=== PATIENT | female | born 2000 ===

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

== ENCOUNTER 2021-06-11 13:40 | Outpatient (REF) | payer OTHER, SELFPAY ==
[2021-06-11 13:50] LABS: MANUAL DIFF FLAG NO
[2021-06-11 14:42] LABS: Basophils Percent Auto 0.5 % (0-2); Eosinophils Absolute Auto 0.1 X10*3/uL (0.0-0.4); Eosinophils Percent Auto 1.2 % (0-4); Hematocrit 33.8 % (37.0-47.0); Hemoglobin 11.4 g/dl (12.0-16.0); Imm Gran Abs Auto 0.01 X10*3/uL (0.00-0.03); Imm Gran Pct Auto 0.2 % (0.0-0.4); Lymphocytes Absolute Auto 1.8 X10*3/uL (1.2-4.9); Lymphocytes Percent Auto 32.2 % (20-40); Mean Corpuscular HGB Conc 33.7 g/dl (31.0-35.0); Mean Corpuscular Hemoglobin 29.3 pg (27.0-33.0); Mean Corpuscular Volume 86.9 fL (80.0-98.0); Mean Platelet Volume 10.8 fL (9.4-12.3); Monocytes Absolute Auto 0.5 X10*3/uL (0.1-1.2); Monocytes Percent Auto 8.2 % (2-11); Neutrophils Absolute Auto 3.3 x10*3/uL (2.0-8.3); Neutrophils Percent Auto 57.7 % (45-73); Platelet Count 275 X10*3/uL (160-400); Red Blood Count 3.89 X10*6/uL (4.20-5.50); Red Cell Distribution Width 12.2 % (11.0-16.0); White Blood Count 5.7 X10*3/uL (4.8-10.8)
[2021-06-11 15:07] LABS: Anion Gap 10 (12-20); Blood Urea Nitrogen 5 mg/dL (9-16); Calcium 9.7 mg/dL (8.4-10.2); Carbon Dioxide 28 mmol/L (22-29); Chloride 105 mmol/L (96-108); Estimated Glomerular Filt Rate > 60; Glucose Random 86 mg/dL (60-115); Iron 33 mcg/dL (30-160); Percent Iron Saturation 10 % (15-50); Potassium 4.4 mmol/L (3.3-5.1); Sodium 139 mmol/L (135-145); Total Iron Binding Capacity 326 mcg/dL (228-428); Unsaturated Iron Binding 293 ug/dL
[2021-06-11 15:27] LABS: Erythrocyte Sedimentation Rate 4 MM/HR (0-20)
== END 2021-06-11 13:41 | disposition home or self-care (01) ==
LOC: HO.LAB 13:40
PROVIDERS: PCP Physician Assistant; Visit Provider Psychiatry & Neurology Neurology
DX: G43.909 Migraine, unspecified, not intractable, without status migrainosus (principal)
CPT/HCPCS: 36415; 80048; 83540; 85025; 85652

== ENCOUNTER 2021-07-24 14:27 | Outpatient (REF) | payer OTHER, SELFPAY ==
--- NOTE | ~2021-07-24 | CT_ITS ---
EXAMINATION: CT HEAD WITH/WITHOUT CONTRAST CLINICAL INFORMATION: Migraine COMPARISON: None TECHNIQUE: Contiguous axial imaging was performed from the skull base to vertex before and after the administration of 85 mL of Omnipaque [address] examination was performed using dose optimization techniques as appropriate, variously including the following: *Automated exposure control *Adjustment of mA and/or kV according to patient size (this includes techniques or standardized protocols for targeted exams where dose is matched to indication/reason for exam; i.e. extremities or head) *Use of iterative reconstruction technique DLP: 1346 mGy-cm FINDINGS: There is no evidence of acute intracranial hemorrhage or territorial infarction. No abnormal mass effect or midline shift is seen. Montano to white matter differentiation is well preserved. No extra-axial fluid collections are identified. There is no abnormal enhancement. The ventricles are normal in size. There is no abnormal attenuation within the brain parenchyma. The osseous structures and soft tissues are normal. The mastoid air cells and visualized portions of the paranasal sinuses are well aerated. CT/CT head/brain wo/w con IMPRESSION: Unremarkable exam.
[2021-07-24] MEDS: iohexoL 350 MG/ML 100 ML INFUS..BTL IV (15:06)
== END 2021-07-24 14:28 | disposition home or self-care (01) ==
LOC: HO.CT 14:27
PROVIDERS: Visit Provider Psychiatry & Neurology Neurology
DX: G43.909 Migraine, unspecified, not intractable, without status migrainosus (principal)
CPT/HCPCS: 70470; Q9967

== ENCOUNTER 2022-02-05 17:28 | Outpatient (REF) | payer OTHER, SELFPAY ==
[2022-02-05 17:49] LABS: Appearance Urine CLEAR; Color Urine YELLOW; Glucose Urine UA NEG (NEG); Leukocyte Esterase Urine NEG (NEG); Nitrite Urine NEG (NEG); Urine Blood NEG (NEG); Urine Ketones NEG (NEG); Urine Protein NEG (NEG-TRACE)
== END 2022-02-05 17:29 | disposition home or self-care (01) ==
LOC: HO.LNP 17:28
PROVIDERS: Visit Provider Pediatrics
DX: R30.0 Dysuria (principal)
CPT/HCPCS: 81003

== ENCOUNTER 2022-12-20 07:58 | Outpatient (REF) | payer OTHER, SELFPAY ==
--- NOTE | ~2022-12-20 | CT_ITS ---
EXAMINATION: CT ANGIOGRAM BRAIN, HEAD CLINICAL INFORMATION: Cerebral aneurysm COMPARISON: CT head without contrast 07/24/2021 TECHNIQUE: Test bolus sequences followed by intravenous administration 75 mL of Omnipaque 350 intravenous contrast. Helical imaging was performed in the axial plane from the skull base to the vertex. Delayed postcontrast imaging of the head was also performed. The data was processed at the extractions technologist workstation for generation of MIP sequences. Three-dimensional volume rendered reformatted images were also generated at an offline 3-D workstation. The degree of stenosis determined by NASCET criteria. This CT examination was performed using dose optimization techniques as appropriate, variously including the following: *Automated exposure control *Adjustment of mA and/or kV according to patient size (this includes techniques or standardized protocols for targeted exams where dose is matched to indication/reason for exam; i.e. extremities or head) *Use of iterative reconstruction technique DLP: 1897 mGy-cm FINDINGS: CT Head: There is no evidence of acute intracranial hemorrhage or edematous territorial infarction. There is no abnormal attenuation within the brain parenchyma. Montano-white matter differentiation is preserved. The ventricles are normal in size and configuration. No evidence for obstructive hydrocephalus. No abnormal mass effect or midline shift. No extra-axial fluid collections. No pathologic intra-axial enhancement or regional oligemia. No acute soft tissue or osseous abnormalities. The mastoid air cells and paranasal sinuses are clear. Brain CTA: Intracranial Internal Carotid Arteries: No focal stenosis or occlusion. Right Anterior Cerebral Artery: The A1 segment is diminutive. Normal opacification of the distal ALONZO segments. Left Anterior Cerebral Artery: Normal A1 segment. Normal opacification of the distal ALONZO segments. Anterior Communicating Artery: Normal. Right Middle Cerebral Artery: Normal M1 segment of the MCA without focal stenosis or occlusion. Normal arborization of the distal segments. Left Middle Cerebral Artery: Normal M1 segment of the MCA without focal stenosis or occlusion. Normal arborization of the distal segments. Right Vertebral Artery: Nondominant right vertebral artery which terminates predominantly as PICA with small component contributing to the basilar artery. Left Vertebral Artery: Dominant. Normal V4 segment. Basilar Artery: Normal without focal stenosis or occlusion. Normal appearance of the proximal superior cerebellar arteries. Right Posterior Cerebral Artery: Normal P1 segment. Normal opacification of the distal SALES PROGRAM MANAGER segments. Left Posterior Cerebral Artery: Normal P1 segment. Normal opacification of the distal SALES PROGRAM MANAGER segments. Normal opacification of the superior sagittal, straight, transverse, and sigmoid sinuses. CT/CT angio head IMPRESSION: No evidence of intracranial aneurysm.
[2022-12-20] MEDS: iohexoL 350 MG/ML 100 ML INFUS..BTL 75 ML IV (08:46)
== END 2022-12-20 07:59 | disposition home or self-care (01) ==
LOC: HO.CT 07:58
PROVIDERS: Visit Provider Psychiatry & Neurology Neurology
DX: I67.1 Cerebral aneurysm, nonruptured (principal)
CPT/HCPCS: 70496; Q9967

== ENCOUNTER 2023-02-20 16:12 | Emergency (ER) | payer OTHER, SELFPAY ==
[2023-02-20 16:54] VITALS: BP 114/56; PULSE 81; RESP 16; TEMP 36.9; O2SAT 98; BMI 29.3
--- NOTE | 2023-02-20 16:56 | ED_ITS ---
HPI - General Adult General Chief complaint: Skin/Abscess/Foreign Body Stated complaint: vagina pain Source: patient Mode of arrival: ambulatory Limitations: no limitations History of Present Illness HPI narrative: 23-year-old female presenting to the ER with complaints of vaginal abscess that occurred or started on Friday after she had a Cambodian wax. She reports that she went to obtain a Cambodian wax and after the wax the wax lady told her that she had abscess to her right labia and that she should be evaluated. She did try to follow-up with OBGYN although she did not obtain an appointment up until March therefore she came here for further evaluation treatment. She reports she has not been sexually active in some time and she does not believe she has an STD. She denies any fevers, chills, abdominal pain, abnormal vaginal discharge, history of MRSA, prior abscesses in the past, dysuria or hematuria or any other symptoms complaints or concerns at this time. MD complaint: vaginal abscess Onset (ago): week(s) (1) Related Data Previous Rx's Medication Instructions Recorded doxycycline monohydrate 100 mg 100 mg PO BID 10 days #20 tabs 02/20/23 tablet Allergies Allergy/AdvReac Type Severity Reaction Status Date / Time dust Allergy Unknown Itchy Eyes Uncoded 02/20/23 16:54 pollen Allergy Unknown Watery Eye Uncoded 02/20/23 16:54 Review of Systems Review of Systems: Constitutional : Denies history of same, Denies any other sites involved, Denies IV drug use, Denies history of MRSA, Denies swollen glands, Denies injury, Denies Fever, Denies Chills, + Sig Pain, Denies Systemic symptoms Cardiovascular : No Chest Pain, No SOB Respiratory : No Dyspnea Gastrointestinal : No abdominal pain Musculoskeletal : No Joint Swelling Skin : + abscess, No surrounding erythema, No skin laceration, No Foreign bodies, No spreading rash, Denies bites, Denies discharge, Neuro : No Weakness, No Numbness/tingling Psych : No SI/HI/thoughts of self injury Yes all other systems are reviewed and are negative [facility] Past Medical History Attestation statement: The following information was validated with the patient. Source: old records reviewed and nursing notes reviewed Medical History No known health problems No pertinent past medical history Surgical History No pertinent past surgical history Social History Social History Household Members: Family Housing: House Alcohol intake: never Advance Directives: No Advance Directives Information Provided: Yes Cognitive needs: No Hearing needs: No Vision needs: No Physical Exam ED Vital Signs: Vital Signs - 24 hr 02/20/23 16:54 Temperature 98.4 F Pulse Rate 81 Respiratory Rate 16 Blood Pressure 114/56 L Pulse Oximetry 98 Oxygen Delivery Method Room Air BMI result Body Mass Index 29.3 Vital signs have been reviewed and all within normal limits Appearance: Alert. Oriented X3. No acute distress. Head: Normal external exam. Normocephalic. Eyes: PERRLA. EOMI. Conjunctiva and sclera normal. Eyelids normal. ENT: Pharynx normal. Uvula midline. Moist mucous membranes. No trismus noted. No drooling noted. No muffled voice noted. Neck: Normal inspection. Neck supple. FROM. No adenopathy. No meningeal signs. CVS: Normal heart rate and rhythm. Heart sound normal. No murmurs noted. Pulses normal throughout. Respiratory: No respiratory distress. Painless inspiration. Breath sounds normal. No wheezes/rales/rhonchi noted. Chest nontender. No accessory muscle usage noted or decreased air movement noted. Abdomen: Soft and nontender. Nondistended. No guarding. No rigidity. Bowel sounds normal in all 4 quadrants. No distention noted. No organomegaly noted. No visible injury noted. No rebound tenderness. Negative Rovsing sign. Negative obturator's sign. Negative psoas sign. Negative Painting sign. : To right labia and left labia patient appears to have bilateral bartholian abscesses. No surrounding erythema or abnormal drainage noted. No lesions are noted. Back: No CVA tenderness. Full range of motion noted. Skin: Skin warm and dry. Normal skin color. Normal skin turgor. No rashes/lesions/lacerations noted. Extremities: Extremities exhibit normal range of motion. Extremities nontender. Neuro: Oriented X 3. No motor deficit. No sensory deficit. Reflexes normal. Normal steady gait. CN's II-XII intact bilaterally? Course Course Course Narrative: This is an RME: Additional HPI, ROS, PE not included below will be deferred to primary provider. This is a 40, hx of migraines, presenting to the ER with complaints of ?right labial abscess. Pt states area is painful and swollen. No fevers, chills or new sexual partners. No urinary symptoms. Unable to visualize region due to limited privacy in triage. No urinary symptoms. Reevaluation(s) Reevaluation #1: IMP/Plan: abscess. No systemic toxicity, and pt looks well.No surrounding cellulitis. Not c/w nec fasc/ myositis/ DVT/ osteomyelitis. patient now status post I&D of abscess Bilateral abscesses were only clear jelly-like fluid was excreted no purulent discharge and patient tolerated procedure well. No complications. UA obtained along with gonorrhea chlamydia urine. No additional labs or imaging indicated at this time. Will DC home antibiotics and symptomatic treatment instructions return if any new or worsening symptoms to follow up with primary care provider /OBGYN. Patient understands agrees this plan. Medications Administered Discontinued Medications Generic Name Dose Route Start Last Admin Trade Name Demetrioq PRN Reason Stop Dose Admin Lidocaine HCl 5 ml 02/20/23 18:44 02/20/23 18:51 Lidocaine Hcl 1 % Mpf 5 Ml Vial SUBCUT 02/20/23 18:45 5 ml ONCE ONE Administration Lidocaine HCl 5 ml 02/20/23 18:45 02/20/23 18:51 Lidocaine Hcl 1 % Mpf 5 Ml Vial SUBCUT 02/20/23 18:46 5 ml ONCE ONE Administration Lidocaine HCl 5 ml 02/20/23 18:45 02/20/23 18:51 Lidocaine Hcl 1 % Mpf 5 Ml Vial SUBCUT 02/20/23 18:46 5 ml ONCE ONE Administration Lidocaine HCl 5 ml 02/20/23 18:46 02/20/23 18:50 Lidocaine Hcl 1 % Mpf 5 Ml Vial SUBCUT 02/20/23 18:47 5 ml ONCE ONE Administration Procedures Abscess I/D Site: bartholin's gland Side (if applicable): left and right Local Anesthetic: lidocaine 1% Amount of anesthesia used (mL): 15 Technique: incised with blade Amount of fluid expressed (mL): 20 Sent for culture/gram staining?: No Irrigation: Yes Packing used?: none Complications: other ( no complication) Medical Decision Making Medical Decision Making MDM Narrative: see course Differential Diagnosis Differential Diagnoses: The differential diagnosis associated with the presentation includes see course External Record Review External record reviewed: Inpatient record, Office record, Outpatient record, Prior outpatient labs, Prior outpatient radiology, Primary care record and Outside ED record all prior lab/imaging /EKG and notes that are accessible in our system reviewed by myself Prescription Management I considered prescription management with: Antibiotic Critical Care Time Critical Care Time Critical Care Time: Yes Total Critical Care Time: 60 Attestation: I personally attest to this time spent taking care of the patient Discharge Plan Discharge Clinical Impression: Abscess of Bartholin's gland Patient Disposition: Home, Self-Care Instructions: Bartholin Cyst (ED), Incision and Drainage (ED) Prescriptions: New doxycycline monohydrate 100 mg tablet 100 mg PO BID 10 Days Qty: 20 0RF Referrals: Getachew Ruiz MD [Physician] - ( call to make a follow-up appointment within the next 1-2 weeks)
[2023-02-20] MEDS: Lidocaine HCl 1 % MPF 5 ML VIAL SUBCUT ×4 (18:50→18:51)
[2023-02-21 11:56] LABS: CT PCR NOT DETECTED (Not Detect.); NG PCR NOT DETECTED (Not Detect.)
== END 2023-02-20 19:44 | disposition home or self-care (01) ==
PROVIDERS: Physician Assistant Medical; Emergency Provider Emergency Medicine
DX: N75.1 Abscess of Bartholin's gland (principal); R10.2 Pelvic and perineal pain
CPT/HCPCS: 0353U; 56420; 99282; 99284

== ENCOUNTER 2023-02-26 13:52 | Outpatient (AMB) | payer OTHER, SELFPAY ==
--- NOTE | 2023-02-26 13:54 | MHC.OFFVIS ---
Intake Vital Signs 02/26/23 13:56 Height 5 ft Weight 149 lb 14.629 oz BMI 29.3 BP 112/68 Intake Visit Reasons: ER follow up per Life Skills Teacher Required: No Information Interpreted: non-clinical & clinical Accompanied by: Self / Same As Patient Allergies dust Allergy (Unknown, Uncoded 02/26/23 13:56) Itchy Eyes pollen Allergy (Unknown, Uncoded 02/26/23 13:56) Watery Eye Is last menstrual period known: Yes HPI HPI Comments History of Present Illness Details Presenting complaining of bilateral labial swelling of few days duration. The patient went to the emergency room a week ago had I&D for bilateral Bartholin's gland cyst but they both recurred. No fever or chills, no other concerns. 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 Sexually active: Yes Sexual orientation: Straight/Heterosexual Gender identity: Female Cognitive needs: No Hearing needs: No Vision needs: No Female Reproductive History Menstrual control method: condoms Total pregnancies: 0 Review of Systems Const All systems reviewed & are unremarkable except as noted in HPI and below Physical Exam Vital Signs: Last Vital Signs BP 112/68 02/26/23 13:56 BMI result Body Mass Index 29.3 General: Yes no CVA tenderness External Female Exam: normal appearance of the urethra and other (Bilateral Bartholin's gland cysts) Speculum Exam - Vagina: normal appearance of the vagina, normal palpation, no lesions and no masses Speculum Exam - Cervix: normal appearance of the cervix, normal palpation, no lesions, no masses and nontender Bimanual exam- vagina & uterus: normal bimanual exam, normal palpation, uterine size normal, normal palpation, uterine shape normal, No Cervical tenderness present and non-tender Bimanual Exam- Adnexa, other: normal adnexae Back/Spine/Pelvis Back: no CVA tenderness Office Procedures Incision/Drainage NEUROCRITICAL CARE PHYSICIAN Incision/Drainage NEUROCRITICAL CARE PHYSICIAN Details: Bilateral Bartholin I & D with Word Catheter insertion Indication: Right and Left labial Bartholin's gland cyst. Prep: the skin was cleaned with Betadine bilaterally. Anesthesia: 5 cc of Xylocaine was used for anesthesia Guidance: palpation was used for guidance. Technique: a nicking incision was made in the skin bilateral, using an 11-blade to incise the cyst, and to word catheters were advanced into the cyst cavity . Yield: 3 cc came out on each side. The fluid was blood-tinged. Result: This substantially decompressed the swelling bilaterally. Dressing: a clean dressing was placed. Tolerance: The patient tolerated the procedure well. Disposition: The patient was sent home in stable condition. Before the procedure was started d/w patient the procedure, alternatives (do nothing), & all the risks associated with the procedure (bleeding , infection, scar tissue development, chronic dyspareunia, injury to bladder, vessels, bowels, possible need for transfusion with all its risks) then patient signed the consent and At the end the patient was instructed to call if temp>100.4, abdominal pain, n/v. [id number]&D of Bartholin gland abscess All charges added?: Procedure code (CPT) selection complete Assessment & Plan Assessment & Plan (1) Bartholin's gland cyst: Comment: Bilateral Code(s): N75.0 - Cyst of Bartholin's gland Plan: Discussed with the patient the finding on physical exam a bilateral Bartholin's gland cyst, recommended I&D with bilateral word catheter insertion. Procedure done, see procedure note. Orders: Orders Incision & Drainage NEUROCRITICAL CARE PHYSICIAN Today N75.0 - Cyst of Bartholin's gland Coding Level of Care Code New Pt Level 3 (25265) Procedure Only Diagnoses Bartholin's gland cyst N75.0 CPT Codes Incision/Drainage NEUROCRITICAL CARE PHYSICIAN - IDGYN2: 04122-J&D of Bartholin gland abscess ([id number])
[2023-02-26 13:56] VITALS: BP 112/68; BMI 29.3
== END 2023-02-26 15:02 | disposition home or self-care (01) ==
LOC: HO.HWS 13:52
PROVIDERS: Visit Provider Obstetrics & Gynecology
DX: N75.0 Cyst of Bartholin's gland (principal)
CPT/HCPCS: 56420; 99213; 99499

== ENCOUNTER 2023-02-26 13:52 | Outpatient (REF) | payer OTHER, SELFPAY | END 2023-02-26 13:53 | disposition home or self-care (01) | LOC: HO.LNP 13:52 | PROVIDERS: Visit Provider Obstetrics & Gynecology | DX: N75.0 Cyst of Bartholin's gland (principal) | CPT/HCPCS: 56420; 87070; 87205; 99212 ==

== ENCOUNTER 2023-02-27 15:21 | Outpatient (AMB) | payer OTHER, SELFPAY ==
[2023-02-27 15:22] VITALS: BP 118/66; BMI 29.3
--- NOTE | 2023-02-27 15:22 | A.OFFVIS_ITS ---
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 Information Interpreted: non-clinical & clinical Banking Services Officer: Banking Services Officer Present (Krissy SANCHEZ) Accompanied by: Mother Allergies dust Allergy (Unknown, Uncoded 02/27/23 15:23) Itchy Eyes pollen Allergy (Unknown, Uncoded 02/27/23 15:23) Watery Eye HPI HPI Comments History of Present Illness Details Presenting complaining of bilateral I&D site discomfort, no fever or chills other symptoms PFSH Medical History No known health problems No pertinent past medical history Surgical History No pertinent past surgical history Social History Household Members: Family Both parents involved: Yes Housing: House Alcohol intake: current Alcohol intake frequency: holidays/special occasions only Patient Tobacco Use Status: Never used Tobacco Current occupational status: employed and student 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 Sexual orientation: Straight/Heterosexual Gender identity: Female Cognitive needs: No Hearing needs: No Vision needs: No Review of Systems Const All systems reviewed & are unremarkable except as noted in HPI and below Physical Exam Vital Signs: Last Vital Signs BP 118/66 02/27/23 15:22 BMI result Body Mass Index 29.3 General: Yes no CVA tenderness External Female Exam: normal appearance of the urethra and other (Bilateral I&D site within normal, both were catheters protruding) Speculum Exam - Vagina: normal appearance of the vagina, normal palpation, no lesions and no masses Speculum Exam - Cervix: normal appearance of the cervix, normal palpation, no lesions, no masses and nontender Bimanual exam- vagina & uterus: normal bimanual exam, normal palpation, uterine size normal, normal palpation, uterine shape normal, No Cervical tenderness present and non-tender Bimanual Exam- Adnexa, other: normal adnexae Back/Spine/Pelvis Back: no CVA tenderness Assessment & Plan Assessment & Plan (1) Bartholin's gland cyst: Comment: Bilateral Code(s): N75.0 - Cyst of Bartholin's gland Plan: Bilateral Word catheter balloon deflated and catheters taken out, the patient felt immediate relief. Instruction given to patient to call if pain recurs, fever above 100.4 or any other concerns. All questions answered and patient verbalized understanding Coding Level of Care Code Est Pt Level 3 (02628) Diagnoses Bartholin's gland cyst N75.0
== END 2023-02-27 15:38 | disposition home or self-care (01) ==
LOC: HO.HWS 15:21
PROVIDERS: Visit Provider Obstetrics & Gynecology
DX: N75.0 Cyst of Bartholin's gland (principal)
CPT/HCPCS: 99213

== ENCOUNTER → 2023-02-27 15:21 | Outpatient (BNVA) | payer OTHER, SELFPAY | PROVIDERS: Visit Provider Obstetrics & Gynecology | DX: N75.0 Cyst of Bartholin's gland (principal); Z46.89 Encounter for fitting and adjustment of other specified devices | CPT/HCPCS: 99212 ==

== ENCOUNTER 2023-03-13 13:06 | Outpatient (REF) | payer OTHER, SELFPAY | END 2023-03-13 13:07 | disposition home or self-care (01) | LOC: HO.LNP 13:06 | PROVIDERS: Visit Provider Obstetrics & Gynecology | DX: N75.0 Cyst of Bartholin's gland (principal) | CPT/HCPCS: 56420; 87070; 87077; 87186; 87205 ==

== ENCOUNTER 2023-03-13 13:06 | Outpatient (AMB) | payer OTHER, SELFPAY ==
--- NOTE | 2023-03-13 13:15 | A.OFFVIS_ITS ---
Intake Vital Signs 03/13/23 13:17 Height 5 ft Weight 149 lb 14.629 oz BMI 29.3 BP 110/68 Intake Visit Reasons: Bartholin cyst Administration Professional Required: No Information Interpreted: non-clinical & clinical Framing Mill Operator Helper: Framing Mill Operator Helper Present (Krissy SANCHEZ) Accompanied by: Self / Same As Patient Allergies dust Allergy (Unknown, Uncoded 03/13/23 13:17) Itchy Eyes pollen Allergy (Unknown, Uncoded 03/13/23 13:17) Watery Eye Is last menstrual period known: Yes Last menstrual period: 03/04/23 HPI HPI Comments History of Present Illness Details Presenting complaining of her right vulvar swelling and pain since yesterday. 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 Sexual orientation: Straight/Heterosexual Gender identity: Female Cognitive needs: No Hearing needs: No Vision needs: No Female Reproductive History Menstrual Date of last menstrual period: 03/04/23 Review of Systems Const All systems reviewed & are unremarkable except as noted in HPI and below Physical Exam Vital Signs: Last Vital Signs BP 110/68 03/13/23 13:17 BMI result Body Mass Index 29.3 General: Yes no CVA tenderness External Female Exam: normal external appearance, normal appearance of the urethra and other (Right Bartholin's gland cyst) Speculum Exam - Vagina: normal appearance of the vagina, normal palpation, no lesions and no masses Speculum Exam - Cervix: normal appearance of the cervix, normal palpation, no lesions, no masses and nontender Bimanual exam- vagina & uterus: normal bimanual exam, normal palpation, uterine size normal, normal palpation, uterine shape normal, No Cervical tenderness present and non-tender Bimanual Exam- Adnexa, other: normal adnexae Back/Spine/Pelvis Back: no CVA tenderness Office Procedures Incision/Drainage UTILITIES ESTIMATOR AND DRAFTER Incision/Drainage UTILITIES ESTIMATOR AND DRAFTER Details: Right Bartholin I & D with Word Catheter insertion Indication: Right labial Bartholin's gland cyst. Prep: the skin was cleaned with Betadine. Anesthesia: 3 cc of Xylocaine was used for anesthesia Guidance: palpation was used for guidance. Technique: a nicking incision was made in the skin, using an 11-blade to incise the cyst, and word catheter was advanced into the cyst cavity . Yield: 3 cc came out. The fluid was blood-tinged. Result: This substantially decompressed the swelling. Dressing: a clean dressing was placed. Tolerance: The patient tolerated the procedure well. Disposition: The patient was sent home in stable condition. Before the procedure was started d/w patient the procedure, alternatives (do nothing), & all the risks associated with the procedure (bleeding , infection, scar tissue development, chronic dyspareunia, injury to bladder, vessels, bowels, possible need for transfusion with all its risks) then patient signed the consent and At the end the patient was instructed to call if temp>100.4, abdominal pain, n/v. [id number]-H&D of Bartholin gland abscess All charges added?: Procedure code (CPT) selection complete Assessment & Plan Assessment & Plan (1) Bartholin's gland cyst: Comment: Right Code(s): N75.0 - Cyst of Bartholin's gland Plan: Discussed with the patient the finding on pelvic exam showing a right Bartholin's gland cyst, recommended I&D in word catheter insertion, done, see procedure note. Instructions given the patient to call case of fever above 100.4, right vulvar pain, discharge, heavy bleeding and to schedule 4 week fo llow-up appointment for word catheter removal. All questions answered, the patient verbalized understanding Orders: Orders Routine Culture w Gram Stain Today N75.0 - Cyst of Bartholin's gland Incision & Drainage UTILITIES ESTIMATOR AND DRAFTER Today N75.0 - Cyst of Bartholin's gland Coding Level of Care Code Procedure Only Diagnoses Bartholin's gland cyst N75.0 CPT Codes Incision/Drainage UTILITIES ESTIMATOR AND DRAFTER - IDGYN2: [id number]-U&D of Bartholin gland abscess ([id number])
[2023-03-13 13:17] VITALS: BP 110/68; BMI 29.3
== END 2023-03-13 13:48 | disposition home or self-care (01) ==
LOC: HO.HWS 13:06
PROVIDERS: Visit Provider Obstetrics & Gynecology
DX: N75.0 Cyst of Bartholin's gland (principal)
CPT/HCPCS: 56420

== ENCOUNTER 2023-03-18 12:12 | Outpatient (AMB) | payer OTHER, SELFPAY ==
[2023-03-18 12:18] VITALS: BP 110/68; BMI 29.3
--- NOTE | 2023-03-18 12:18 | MHC.OFFVIS ---
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 Doing well with the right side Bartholin's gland I&D in word catheter but the patient is complaining of left Bartholin's new onset in large. Culture of the right Bartholin's gland draining grew E coli sensitive to Bactrim, the patient was started on Bactrim and started antibiotics today. 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 Sexual orientation: Straight/Heterosexual Gender identity: Female Cognitive needs: No Hearing needs: No Vision needs: No Review of Systems Const All systems reviewed & are unremarkable except as noted in HPI and below Physical Exam Vital Signs: Last Vital Signs BP 110/68 03/18/23 12:18 BMI result Body Mass Index 29.3 General: Yes no CVA tenderness External Female Exam: normal external appearance, normal appearance of the urethra, external swelling (Left Bartholin's gland enlargement) and other (Right vulvar within normal no evidence cellulitis, word catheter in place) Speculum Exam - Vagina: normal appearance of the vagina, normal palpation, no lesions and no masses Speculum Exam - Cervix: normal appearance of the cervix, normal palpation, no lesions, no masses and nontender Bimanual exam- vagina & uterus: normal bimanual exam, normal palpation, uterine size normal, normal palpation, uterine shape normal, No Cervical tenderness present and non-tender Bimanual Exam- Adnexa, other: normal adnexae Back/Spine/Pelvis Back: no CVA tenderness Assessment & Plan Assessment & Plan (1) Bartholin's gland cyst: Comment: Right Bartholin's gland Status post I&D with word catheter insertion Left Bartholin large Code(s): N75.0 - Cyst of Bartholin's gland Plan: Discussed with the patient that although she had recurrent Bartholin's gland but since she never had word catheter insertion for few weeks to prevent recurrent, Recommended I&D of the left Bartholin's gland with word catheter insertion and to finish antibiotic course, keep with word catheters form 4 weeks and if Bartholin's gland recurrent then will proceed with marsupialization. The patient would like to come back for left Bartholin's gland I&D and insert in 2 days. Instructions given to the patient to call or go to the emergency in case of fever above 100.4 vulvar pain, change in the skin color on the other concerns Coding Level of Care Code Est Pt Level 3 (06686) Diagnoses Bartholin's gland cyst N75.0
== END 2023-03-18 12:53 | disposition home or self-care (01) ==
LOC: HO.HWS 12:12
PROVIDERS: Visit Provider Obstetrics & Gynecology
DX: N75.0 Cyst of Bartholin's gland (principal)
CPT/HCPCS: 99213

== ENCOUNTER → 2023-03-18 12:12 | Outpatient (BNVA) | payer OTHER, SELFPAY | PROVIDERS: Visit Provider Obstetrics & Gynecology | DX: N75.0 Cyst of Bartholin's gland (principal) | CPT/HCPCS: 99212 ==

== ENCOUNTER 2023-03-20 13:37 | Outpatient (AMB) | payer OTHER, SELFPAY ==
[2023-03-20 13:43] VITALS: BP 110/66; BMI 29.3
--- NOTE | 2023-03-20 13:43 | A.OFFVIS_ITS ---
Intake Vital Signs 03/20/23 13:43 Height 5 ft Weight 150 lb BMI 29.3 BP 110/66 Intake Visit Reasons: cath insertion Rewinder Required: No Information Interpreted: non-clinical & clinical Podiatric Technician: Podiatric Technician Present (Krissy) Accompanied by: Mother Allergies dust Allergy (Unknown, Uncoded 03/20/23 13:43) Itchy Eyes pollen Allergy (Unknown, Uncoded 03/20/23 13:43) Watery Eye Post menopausal: No HPI HPI Comments History of Present Illness Details Presenting for left Bartholin's gland cyst I&D in word catheter insertion [facility] Medical History No known health problems No pertinent past medical history Surgical History No pertinent past surgical history Social History Household Members: Family Both parents involved: Yes Housing: House Alcohol intake: current Alcohol intake frequency: holidays/special occasions only Patient Tobacco Use Status: Never used Tobacco Current occupational status: employed and student 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 Sexual orientation: Straight/Heterosexual Gender identity: Female Cognitive needs: No Hearing needs: No Vision needs: No Review of Systems Const All systems reviewed & are unremarkable except as noted in HPI and below Physical Exam Vital Signs: Last Vital Signs BP 110/66 03/20/23 13:43 BMI result Body Mass Index 29.3 General: Yes no CVA tenderness External Female Exam: normal appearance of the urethra and other (Left Bartholin's gland cyst, right Bartholin's gland wnl with word cath) Speculum Exam - Vagina: normal appearance of the vagina, normal palpation, no lesions and no masses Speculum Exam - Cervix: normal appearance of the cervix, normal palpation, no lesions, no masses and nontender Bimanual exam- vagina & uterus: normal bimanual exam, normal palpation, uterine size normal, normal palpation, uterine shape normal, No Cervical tenderness present and non-tender Bimanual Exam- Adnexa, other: normal adnexae Back/Spine/Pelvis Back: no CVA tenderness Office Procedures Incision/Drainage CORN DETASSELER MACHINE OPERATOR Incision/Drainage CORN DETASSELER MACHINE OPERATOR Details: Left Bartholin I & D with Word Catheter insertion Indication: Left labial Bartholin's gland cyst. Prep: the skin was cleaned with Betadine. Anesthesia: 3 cc of Xylocaine was used for anesthesia Guidance: palpation was used for guidance. Technique: a nicking incision was made in the skin, using an 11-blade to incise the cyst, and word catheter was advanced into the cyst cavity . Yield: 3 cc came out. The fluid was blood-tinged. Result: This substantially decompressed the swelling. Dressing: a clean dressing was placed. Tolerance: The patient tolerated the procedure well. Disposition: The patient was sent home in stable condition. Before the procedure was started d/w patient the procedure, alternatives (do nothing), & all the risks associated with the procedure (bleeding , infection, scar tissue development, chronic dyspareunia, injury to bladder, vessels, bowels, possible need for transfusion with all its risks) then patient signed the consent and At the end the patient was instructed to call if temp>100.4, abdominal pain, n/v. [id number]-J&D of Bartholin gland abscess All charges added?: Procedure code (CPT) selection complete Assessment & Plan Assessment & Plan (1) Cyst of left Bartholin's gland: Code(s): N75.0 - Cyst of Bartholin's gland Plan: Left Bartholin's gland I&D in word catheter insertion done, see procedure note. Instruction was given to the patient to schedule a 4 week word catheter appointment Orders: Orders Incision & Drainage CORN DETASSELER MACHINE OPERATOR Today N75.0 - Cyst of Bartholin's gland Coding Level of Care Code Procedure Only Diagnoses Cyst of left Bartholin's gland N75.0 CPT Codes Incision/Drainage CORN DETASSELER MACHINE OPERATOR - IDGYN2: [id number]-X&D of Bartholin gland abscess ([id number])
== END 2023-03-20 14:21 | disposition home or self-care (01) ==
LOC: HO.HWS 13:37
PROVIDERS: Visit Provider Obstetrics & Gynecology
DX: N75.0 Cyst of Bartholin's gland (principal)
CPT/HCPCS: 56420

== ENCOUNTER → 2023-03-20 13:37 | Outpatient (BNVA) | payer OTHER, SELFPAY | PROVIDERS: Visit Provider Obstetrics & Gynecology | DX: N75.0 Cyst of Bartholin's gland (principal) | CPT/HCPCS: 56420 ==

== ENCOUNTER 2023-04-10 14:11 | Outpatient (AMB) | payer OTHER, SELFPAY ==
[2023-04-10 14:16] VITALS: BP 104/72; BMI 29.3
--- NOTE | 2023-04-10 14:16 | A.OFFVIS_ITS ---
Intake Vital Signs 04/10/23 14:16 Height 5 ft Weight 150 lb BMI 29.3 BP 104/72 Intake Visit Reasons: Catheter check Clerical Adjudicator Required: No Information Interpreted: non-clinical & clinical Privacy Analyst: Privacy Analyst Present (Krissy) Allergies dust Allergy (Unknown, Uncoded 04/10/23 14:16) Itchy Eyes pollen Allergy (Unknown, Uncoded 04/10/23 14:16) Watery Eye Is last menstrual period known: Yes Last menstrual period: 03/27/23 Post menopausal: No HPI HPI Comments History of Present Illness Details Presenting 4 weeks post bilateral Bartholin's gland I&D and word catheter insertion with no complaints, no vulvar pain. 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 Sexual orientation: Straight/Heterosexual Gender identity: Female Cognitive needs: No Hearing needs: No Vision needs: No Female Reproductive History Menstrual Date of last menstrual period: 03/27/23 Review of Systems Const All systems reviewed & are unremarkable except as noted in HPI and below Physical Exam Vital Signs: Last Vital Signs BP 104/72 04/10/23 14:16 BMI result Body Mass Index 29.3 General: Yes no CVA tenderness External Female Exam: normal external appearance, normal appearance of the urethra and other (Bilateral word catheter in place, no evidence of erythema or swelling) Speculum Exam - Vagina: normal appearance of the vagina, normal palpation, no lesions and no masses Speculum Exam - Cervix: normal appearance of the cervix, normal palpation, no lesions, no masses and nontender Bimanual exam- vagina & uterus: normal bimanual exam, normal palpation, uterine size normal, normal palpation, uterine shape normal, No Cervical tenderness present and non-tender Bimanual Exam- Adnexa, other: normal adnexae Back/Spine/Pelvis Back: no CVA tenderness Assessment & Plan Assessment & Plan (1) Bartholin's gland cyst: Comment: Bilateral status post I&D was bilaterally word catheter insertion 4 weeks Code(s): N75.0 - Cyst of Bartholin's gland Plan: Bilateral word catheters removal done in the usual fashion. Instructions given the patient to call in case of recurrence of Bartholin's gland cyst. All questions answered, the patient verbalized understanding agreed with the plan. Coding Level of Care Code Est Pt Level 3 (10903) Diagnoses Bartholin's gland cyst N75.0
== END 2023-04-10 14:35 | disposition home or self-care (01) ==
PROVIDERS: Visit Provider Obstetrics & Gynecology
DX: N75.0 Cyst of Bartholin's gland (principal)
CPT/HCPCS: 99213

== ENCOUNTER → 2023-04-10 14:11 | Outpatient (BNVA) | payer OTHER, SELFPAY | PROVIDERS: Visit Provider Obstetrics & Gynecology | DX: Z48.816 Encounter for surgical aftercare following surgery on the genitourinary system (principal); Z87.42 Personal history of other diseases of the female genital tract | CPT/HCPCS: 99212 ==

== ENCOUNTER 2024-02-02 15:11 | Outpatient (AMB) | payer OTHER, SELFPAY ==
--- NOTE | 2024-02-02 15:13 | A.OFFPC_ITS ---
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 Clerical Methods Analyst Required: No Is last menstrual period known: Yes Last menstrual period: 02/04/24 Post menopausal: No Patient : No Allergies dust Allergy (Unknown, Uncoded 04/10/23 14:16) Itchy Eyes pollen Allergy (Unknown, Uncoded 04/10/23 14:16) Watery Eye lactose Adverse Reaction (Intermediate, Uncoded 02/02/24 15:41) Abdominal Pain Dental Screening Dental Screen Date: 02/02/24 Did you have a dental visit in the last 12 months?: Yes Did you have a dental problem in the last 6 months where you did not have access to dental care?: No Was dental information given to patient?: Patient has dentist HPI HPI Comments History of Present Illness Details This is a 23-year-old female with a past medical history of perennial allergic rhinitis, mild intermittent asthma and migraines presenting to [facility]. She was last seen in [facility] 02/20/2022. Declines complete physical today. She would like a referral to Allergy and immunology. She has a former patient of Dr. Garcia. She received allergy injections for approximately a year and a half before her provider retired a couple years ago. Her allergies improved, but they still bother her. She takes 10 mg of Zyrtec as needed. She has allergies to her cat, dust and pollen. She is interested in restarting allergy injections. Allergy symptoms include sneezing, eye itching, wheezing and coughing. Claritin is ineffective for her symptoms. She has asthma triggered by allergies and illness. She takes albuterol less than once per week usually. She did require 2 courses of prednisone within the past year. One was for strep throat and the other was when she was sick which triggered an asthma exacerbation. She says this is an anomaly. She usually does not require prednisone to treat her asthma. Migraines are treated with Zofran and Nurtec as needed. She is prescribed 40 mg of verapamil to take nightly for prophylaxis, but she is not using it con sistently. Followed by Dr. Crenshaw. [facility] Medical History (Updated 02/02/24 @ 16:27 by BOBBY Guzman) Perennial allergic rhinitis with seasonal variation Mild intermittent asthma in adult without complication Lactose intolerance Migraines Acne vulgaris Bartholin's gland cyst Cyst of left Bartholin's gland Surgical History (Updated 02/02/24 @ 15:29 by BOBBY Guzman) [place] teeth removed Family History (Updated 02/02/24 @ 15:48 by BOBBY Guzman) Mother Asthma Brother Heart failure Social History Household Members: Family Both parents involved: Yes Housing: House Alcohol intake: current Alcohol intake frequency: holidays/special occasions only Patient Tobacco Use Status: Never used Tobacco e-Cigarette/Vaping Use: Never Used Second Hand Smoke Exposure: No service: No Current occupational status: employed and student 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 1. Little interest or pleasure in doing things: not at all 2. Feeling down, depressed, or hopeless: not at all 3. Trouble falling or staying asleep, or sleeping too much: not at all 4. Feeling tired or having little energy: not at all 5. Poor appetite or overeating: not at all 6. Feeling bad about yourself - or that you are a failure or have let yourself or your family down: not at all 7. Trouble concentrating on things, such as reading the newspaper or watching television: not at all 8. Moving or speaking so slowly that other people could have noticed. Or the opposite - being so fidgety or restless that you have been moving around a lot more than usual: not at all 9. Thoughts that you would be better off or of hurting yourself in some way: not at all Total score: 0 Depression Screening Interpretation: Negative Depression Screening Done: Yes 91321 - PHQ-9 Billing: Yes Source: Developed by Drs. Mando Umana, Meghana Martin, Matt Ramos and colleagues, with an educational larissa from [employer]. Thrive Questionnaire Date Thrive assessed: 02/02/24 I am a: Patient What is your living situation today?: I have a steady place to live Within the past 12 months, did the food you bought not last and you didn't have the money to get more?: Never true Within the past 12 months, did you worry whether your food would run out before you got money to buy more?: Never true Do you have trouble paying for medicines?: No Do you have trouble getting transportation to medical appointments?: No Do you have trouble paying your heating and electricity bill?: No Do you have trouble taking care of your child, family member or friend?: No Do you have trouble with day-to-day activities such as bathing, preparing meals, shopping, managing finances, etc.?: No Are you currently unemployed and looking for a job?: No Are you interested in more education?: Yes Please select the resources that you would like help with: Education Currently or been in a relationship where the following occur: No concerns reported THRIVE Score: 0 JENIFER-7 AMB Questionnaire JENIFER-7 Date JENIFER - 7 assessed: 02/02/24 Feeling nervous, anxious, or on edge: 0 = Not at all Not being able to stop or control worryin = Not at all Worrying too much about different things: 0 = Not at all Trouble relaxin = Not at all Being so restless that it is hard to sit still: 0 = Not at all Becoming easily annoyed or irritable: 0 = Not at all Feeling afraid as if something awful might happen: 0 = Not at all Total JENIFER-7 score (0-4 normal; 5-9 mild; 10-14 moderate; 15-21 severe): 0 Source: Developed by Drs. Mando Umana, Meghana Martin, Matt Ramos and colleagues, with an educational larissa from [employer]. JENIFER-7 Assessment Billing JENIFER-7 Assessment Tool: JENIFER-7 Assessment 58493 ACT Questionnaire In the past 4 weeks, how much of the time did your asthma keep you from getting as much done at work, school or at home?: None of the time During the past 4 weeks, how often have you had shortness of breath?: Not at all During the past 4 weeks, how often did your asthma symptoms wake you up at night or earlier than usual in the morning?: Not at all During the past 4 weeks, how often have you had to use your rescue inhaler or nebulizer medication?: Not at all How would you rate your asthma control during the past 4 weeks?: Well controlled Score: 24 Review of Systems Const Details: Constitutional: No unexplained weight loss, fever, chills, fatigue or night sweats.e. ENT: see HPI Respiratory: No shortness of breath, cough or sputum production. Cardiovascular: No chest pain Psychiatric: No depression or anxiety. No SI/HI. Physical exam (Primary Care) Vital Signs: Last Vital Signs Temp 97.8 F 02/02/24 15:20 Pulse 89 02/02/24 15:20 Resp 16 02/02/24 15:20 BP 98/60 02/02/24 15:20 Pulse Ox 100 02/02/24 15:20 Oxygen Delivery Method Room Air 02/02/24 15:20 BMI result Body Mass Index 30.9 Tobacco/Smoking Status: Tobacco use Status Patient Tobacco Use Status Never used Tobacco 02/02/24 15:27 e-Cigarette/Vaping Use Never Used 02/02/24 15:27 PHQ-9: PHQ-9 Score PHQ-9: Total score 0 02/02/24 15:32 Depression Screening Interpretation: Negative Thrive Assessment: Date of Thrive Assessment Date Thrive assessed 02/02/24 02/02/24 15:27 Currently or been in a relationship where the following occur: No concerns reported Const Other: Constitutional: Alert, in no distress. Eyes: Pupils are equal, round and reactive to light. Extraocular muscles intact. Ear, Nose and Throat: Canals w/ soft, light brown cerumen.Visualized portions of TMs normal. Normal nasal mucosa. Turbinates 2+.No nasal discharge. No oral lesions. Neck: Supple, Full range of motion. No lymphadenopathy. Respiratory: Clear to auscultation. Cardiovascular: S1 S2 regular. No murmurs Psychiatric: Normal mood and affect Assessment and Plan Assessment & Plan (1) Perennial allergic rhinitis with seasonal variation: Code(s): J30.89 - Other allergic rhinitis; J30.2 - Other seasonal allergic rhinitis Plan: Continue Zyrtec 10 mg daily as needed. Referred to Allergy and immunology. (2) Mild intermittent asthma in adult without complication: Code(s): J45.20 - Mild intermittent asthma, uncomplicated Plan: Continue albuterol 2 puffs every 4 hours as needed for cough, wheezing and shortness of breath. Monitor symptom burden. (3) Migraines: Code(s): G43.909 - Migraine, unspecified, not intractable, without status migrainosus Qualifiers: Migraine type: periodic headache syndrome Intractability: not intractable Qualified Code(s): G43.C0 - Periodic headache syndromes in child or adult, not intractable Plan: Continue current regimen per Neurology. Orders: Referrals Allergy & Immunology Referral J30.2 - Other seasonal allergic rhinitis, J30.89 - Other allergic rhinitis Medications: New cetirizine (Zyrtec) 10 mg PO DAILY PRN 30 tabs 5RF allergy symptoms Patient Instructions: Follow up in 6 months for complete physical exam. Coding Level of Care Code Est Pt Level 4 (28272) Complex EM visit Add On G2211 Diagnoses Perennial allergic rhinitis with seasonal variation J30.89; J30.2 Mild intermittent asthma in adult without complication J45.20 Periodic headache syndrome, not intractable G43.C0 Migraine type: periodic headache syndrome Intractability: not intractable Additional Codes JENIFER-7 Assessment Billing - JENIFER-7 Assessment Tool: JENIFER-7 Assessment 12679 ([id number])
[2024-02-02 15:20] VITALS: BP 98/60; PULSE 89; RESP 16; TEMP 36.6; O2SAT 100; BMI 30.9
== END 2024-02-02 15:55 | disposition home or self-care (01) ==
PROVIDERS: Visit Provider Physician Assistant Medical
DX: J30.89 Other allergic rhinitis (principal); J30.2 Other seasonal allergic rhinitis; J45.20 Mild intermittent asthma, uncomplicated; G43.C0 Periodic headache syndromes in child or adult, not intractable
CPT/HCPCS: 99214; G2211

== ENCOUNTER 2024-04-08 15:00 | Outpatient (AMB) | payer OTHER, SELFPAY ==
--- NOTE | 2024-04-08 15:14 | A.OFFPC_ITS ---
Vital Signs 04/08/24 15:17 Height 5 ft Weight 166 lb 6 oz BMI 32.5 BP 96/64 Blood Pressure Location Rt brachial Position Sitting Respiration 12 Pulse 86 Pulse Source Pulse Oximeter Pulse Oximetry (%) 96 Oxygen Delivery Method Room Air Intake Visit Reasons: IronDeficiency Intake Note: Stomach ache ongoing. symptoms last for a few days. Armed Security Professional Required: No Is last menstrual period known: Yes Last menstrual period: 03/15/24 Allergies dust Allergy (Unknown, Uncoded 04/08/24 15:16) Itchy Eyes pollen Allergy (Unknown, Uncoded 04/08/24 15:16) Watery Eye lactose Adverse Reaction (Intermediate, Uncoded 04/08/24 15:16) Abdominal Pain Dental Screening Dental Screen Date: 02/02/24 HPI HPI Comments History of Present Illness Details This is a 23-year-old female with a past medical history of perennial allergic rhinitis, mild intermittent asthma and migraines presenting for a problem visit. Endorses fatigue for several months. Feels easily drained. Patient says she has a history of anemia, and she would like blood work done. No chest pain, shortness of breath or syncope. No unusual bleeding or bruising. Menstrual period last 5-7 days. During 3 days she has a heavy flow. She has to change tampon or pad 4 to 5 times during the day. She also gets severe cr amping. She feels like she can not move. She uses midol and a heating pad and just tries to go to sleep. Patient also reports chronic intermittent upper abdominal pain associated with nausea. It occurs whether or not she eats. She describes it as sharp and aching. Her boyfriend who accompanied her to the visit today corroborates this. She has occasionally vomited with it. No blood in stools, unexplained weight loss or hematemesis. It occurs most days of the week. ROS: Constitutional: No unexplained weight loss, fever, chills or night sweats. Eyes: No vision changes, blurry vision, double vision Respiratory: No shortness of breat Cardiovascular: No chest pain Gastrointestinal: No anorexia, Diarrhea, blood in stools. See HPI. Genitourinary: No dysuria, hematuria, urinary frequency. Neurologic: No headache, dizziness, syncope Hematologic/Lymphatics: No bleeding or bruising. No painful lymph nodes. Skin: No rash or itching. Endocrine: No cold or heat intolerance. No polyuria or polydipsia. Physical exam: Constitutional: Alert, in no distress. Eyes: Pupils are equal, round and reactive to light. Extraocular muscles intact. Neck: Supple, Full range of motion. No lymphadenopathy. No palpable thyroid masses. Respiratory: Clear to auscultation. Cardiovascular: S1 S2 regular. No murmurs. Gastrointestinal: Abdomen soft, non-tender, non-distended. Normal bowel sounds. No palpable masses. Genitourinary: No costovertebral angle tenderness. Neurologic: No focal neurological deficits. Skin: No rashes or lesions. Extremities: Warm and well perfused. No clubbing, cyanosis or edema. Psychiatric: Normal mood and affect [facility] Medical History (Updated 04/09/24 @ 16:28 by BOBBY Guzman) Nausea Upper abdominal pain Fatigue Perennial allergic rhinitis with seasonal variation Mild intermittent asthma in adult without complication Lactose intolerance Migraines Acne vulgaris Bartholin's gland cyst Cyst of left Bartholin's gland Surgical History (Updated 02/02/24 @ 15:29 by BOBBY Guzman) [place] teeth removed Family History (Updated 02/02/24 @ 15:48 by BOBBY Guzman) Mother Asthma Brother Heart failure Social History Household Members: Family Both parents involved: Yes Housing: House Alcohol intake: current Alcohol intake frequency: holidays/special occasions only Patient Tobacco Use Status: Never used Tobacco e-Cigarette/Vaping Use: Never Used Second Hand Smoke Exposure: No service: No Current occupational status: employed and student 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 Mando Umana, Meghana Martin, Matt Ramos and colleagues, with an educational larissa from [employer]. Physical exam (Primary Care) Vital Signs: Last Vital Signs Pulse 86 04/08/24 15:17 Resp 12 04/08/24 15:17 BP 96/64 04/08/24 15:17 Pulse Ox 96 04/08/24 15:17 Oxygen Delivery Method Room Air 04/08/24 15:17 BMI result Body Mass Index 32.5 Tobacco/Smoking Status: Tobacco use Status Patient Tobacco Use Status Never used Tobacco 04/08/24 15:21 e-Cigarette/Vaping Use Never Used 04/08/24 15:21 Thrive Assessment: Date of Thrive Assessment Date Thrive assessed 02/02/24 04/08/24 15:21 Assessment and Plan Assessment & Plan (1) Nausea: Code(s): R11.0 - Nausea Plan: Proceed with lab work as below, abdominal ultrasound to rule out gallstones and H pylori stool antigen testing. (2) Upper abdominal pain: Code(s): R10.10 - Upper abdominal pain, unspecified Plan: See plan for nausea. (3) Fatigue: Code(s): R53.83 - Other fatigue Qualifiers: Fatigue type: unspecified Qualified Code(s): R53.83 - Other fatigue Plan: Ordered labs for fatigue. If nondiagnostic we will proceed with sleep study as patient's boyfriend reports she does snore frequently. No witnessed apneic episodes. Orders: Orders Comprehensive Met. Panel 04/08/24 R10.10 - Upper abdominal pain, unspecified, R11.0 - Nausea, R53.83 - Other fatigue Lipase 04/08/24 R10.10 - Upper abdominal pain, unspecified, R11.0 - Nausea, R53.83 - Other fatigue Amylase 04/08/24 R10.10 - Upper abdominal pain, unspecified, R11.0 - Nausea, R53.83 - Other fatigue UA w Microscopic 04/08/24 R10.10 - Upper abdominal pain, unspecified, R11.0 - Nausea, R53.83 - Other fatigue Ferritin 04/08/24 R10.10 - Upper abdominal pain, unspecified, R11.0 - Nausea, R53.83 - Other fatigue IRON PROFILE 04/08/24 R10.10 - Upper abdominal pain, unspecified, R11.0 - Nausea, R53.83 - Other fatigue Vitamin B12 and Folate 04/08/24 R10.10 - Upper abdominal pain, unspecified, R11.0 - Nausea, R53.83 - Other fatigue US abdomen complete 04/08/24 R10.10 - Upper abdominal pain, unspecified TSH reflex Free T4 04/08/24 E66.9 - Obesity, unspecified, R10.10 - Upper abdominal pain, unspecified, R11.0 - Nausea, R53.83 - Other fatigue HCG Quantitative 04/08/24 R10.10 - Upper abdominal pain, unspecified, R11.0 - Nausea, R53.83 - Other fatigue H pylori Ag Stool 04/08/24 R10.10 - Upper abdominal pain, unspecified, R11.0 - Nausea, R53.83 - Other fatigue Urine Culture 04/08/24 R10.10 - Upper abdominal pain, unspecified, R11.0 - Nausea, R53.83 - Other fatigue Complete Blood Count Auto Diff 04/08/24 R10.10 - Upper abdominal pain, unspecified, R11.0 - Nausea, R53.83 - Other fatigue Coding Level of Care Code Est Pt Level 4 (47436) Complex EM visit Add On G2211 Diagnoses Nausea R11.0 Upper abdominal pain R10.10 Fatigue, unspecified type R53.83 Fatigue type: unspecified
[2024-04-08 15:17] VITALS: BP 96/64; PULSE 86; RESP 12; O2SAT 96; BMI 32.5
== END 2024-04-08 15:52 | disposition home or self-care (01) ==
PROVIDERS: PCP Physician Assistant Medical; Visit Provider Physician Assistant Medical
DX: R11.0 Nausea (principal); R10.10 Upper abdominal pain, unspecified; R53.83 Other fatigue
CPT/HCPCS: 99214; G2211

== ENCOUNTER 2024-04-20 15:45 | Outpatient (REF) | payer OTHER, SELFPAY ==
[2024-04-20 17:32] LABS: MANUAL DIFF FLAG NO
[2024-04-20 17:40] LABS: Basophils Percent Auto 0.4 % (0-2); Eosinophils Absolute Auto 0.3 X10*3/uL (0.0-0.4); Eosinophils Percent Auto 4.7 % (0-4); Hematocrit 33.8 % (37.0-47.0); Hemoglobin 11.7 g/dl (12.0-16.0); Imm Gran Abs Auto 0.02 X10*3/uL (0.00-0.03); Imm Gran Pct Auto 0.3 % (0.0-0.4); Lymphocytes Absolute Auto 2.3 X10*3/uL (1.2-4.9); Lymphocytes Percent Auto 32.7 % (20-40); Mean Corpuscular HGB Conc 34.6 g/dl (31.0-35.0); Mean Corpuscular Hemoglobin 29.3 pg (27.0-33.0); Mean Corpuscular Volume 84.5 fL (80.0-98.0); Mean Platelet Volume 10.1 fL (9.4-12.3); Monocytes Absolute Auto 0.5 X10*3/uL (0.1-1.2); Monocytes Percent Auto 6.4 % (2-11); Neutrophils Absolute Auto 3.9 x10*3/uL (2.0-8.3); Neutrophils Percent Auto 55.5 % (45-73); Platelet Count 305 X10*3/uL (160-400); Red Cell Distribution Width 12.2 % (11.0-16.0); White Blood Count 7.1 X10*3/uL (4.8-10.8)
[2024-04-20 17:45] LABS: Appearance Urine Cloudy; Color Urine Yellow; Glucose Urine UA Negative (Negative); Leukocyte Esterase Urine Negative (Negative); Nitrite Urine Negative (Negative); PH 7.5 (5.0-9.0); Specific Gravity - Urine 1.025 (1.005-1.025); Urine Blood Negative (Negative); Urine Ketones Trace mg/dL (Negative); Urine Protein Negative (Neg-Trace)
[2024-04-20 18:10] LABS: Alanine Aminotransferase 11 U/L (0-31); Albumin Level 4.2 g/dL (3.5-5.0); Alkaline Phosphatase 60 U/L (39-117); Amylase 52 U/L (28-100); Anion Gap 11 (12-20); Aspartate Amino Transferase 18 U/L (5-31); Bilirubin Total 0.2 mg/dL (0.0-1.0); Blood Urea Nitrogen 7 mg/dL (9-16); Calcium 9.5 mg/dL (8.4-10.2); Carbon Dioxide 25 mmol/L (22-29); Chloride 108 mmol/L (96-108); Estimated Glomerular Filt Rate > 60; Glucose Random 87 mg/dL (60-115); Iron 51 mcg/dL (30-160); Lipase 22 U/L (8-78); Percent Iron Saturation 18 % (15-50); Sodium 140 mmol/L (135-145); Total Iron Binding Capacity 280 mcg/dL (228-428); Total Protein 7.4 g/dL (6.5-8.0); Unsaturated Iron Binding 229 ug/dL
[2024-04-20 18:25] LABS: Ferritin 42 ng/mL (10-122); HCG Quantitative < 2 mIU/mL; TSH reflex Free T4 0.56 uIU/mL (0.32-4.0)
[2024-04-20 18:29] LABS: Bacteria Urine None Seen (None Seen); Hyaline Casts Urine 0-2 /LPF (0-2); Squamous Epithelial Cell Urine 0-2 /HPF (0-2); WBC Urine 0-5 /HPF (0-5)
[2024-04-20 18:37] LABS: Folate 10.1 ng/mL (> or = 4.0); Vitamin B12 403 pg/mL (200-900)
== END 2024-04-20 15:46 | disposition home or self-care (01) ==
LOC: HO.WFDLDS 15:45
PROVIDERS: Visit Provider Physician Assistant Medical
DX: R53.83 Other fatigue (principal); R10.10 Upper abdominal pain, unspecified; R11.0 Nausea; E66.9 Obesity, unspecified
CPT/HCPCS: 36415; 80053; 81001; 82150; 82607; 82728; 82746; 83540; 83690; 84443; 84702; 85025; 87086; 87147

== ENCOUNTER 2024-05-10 09:29 | Outpatient (REF) | payer OTHER, SELFPAY ==
--- NOTE | ~2024-05-10 | US_ITS ---
EXAMINATION: US ABDOMEN COMPLETE CLINICAL INFORMATION: Upper abdominal pain, unspecified. COMPARISON: None available. TECHNIQUE: Real-time imaging of the abdominal viscera. Limited visualization due to bowel gas. FINDINGS: PANCREAS: Limited visualization of pancreatic tail and head. Imaged portion of pancreatic body is unremarkable. ABDOMINAL AORTA: Limited visualization of the abdominal aorta. Imaged portions of the abdominal aorta are within normal limits in caliber. INFERIOR VENA CAVA: Visualized portions are normal. LIVER: Increased hepatic parenchymal heterogeneity and echogenicity could be associated with hepatocellular disease/hepatic steatosis and substantially limits visualization. Correlation with liver function tests and clinical exam recommended to determine further management. GALLBLADDER: No gallstones. No gallbladder wall thickening. COMMON BILE DUCT: Normal in caliber measuring 0.4 cm in diameter. RIGHT KIDNEY: No hydronephrosis. No renal calculi. Limited visualization. The kidney measures 10.0 cm in maximum dimension. LEFT KIDNEY: No hydronephrosis. No renal calculi. Limited visualization. . The kidney measures 10.3 cm in maximum dimension. SPLEEN: Normal. The spleen measures 8.9 cm in maximum dimension. FREE FLUID: None. US/US abdomen complete IMPRESSION: Increased hepatic parenchymal heterogeneity and echogenicity could be associated with hepatocellular disease/hepatic steatosis and substantially limits visualization. Correlation with liver function tests and clinical exam recommended to determine further management. Electronically signed by: Radha Menendez MD 05/31/2024 11:27 AM EDT
== END 2024-05-10 09:30 | disposition home or self-care (01) ==
LOC: HO.US 09:29
PROVIDERS: PCP Physician Assistant Medical; Visit Provider Physician Assistant Medical
DX: R10.10 Upper abdominal pain, unspecified (principal)
CPT/HCPCS: 76700

== ENCOUNTER 2024-06-15 14:19 | Outpatient (REF) | payer OTHER, SELFPAY | END 2024-06-15 14:20 | disposition home or self-care (01) | LOC: HO.LNP 14:19 | PROVIDERS: Visit Provider Physician Assistant Medical | DX: R10.10 Upper abdominal pain, unspecified (principal); R53.83 Other fatigue; R11.0 Nausea | CPT/HCPCS: 87338 ==

== ENCOUNTER 2024-10-18 08:35 | Outpatient (AMB) | payer OTHER, SELFPAY ==
--- NOTE | 2024-10-18 08:43 | A.OFFPC_ITS ---
Intake Visit Reasons: cpe Intake Note: cpe Applications Engineer Required: No Allergies dust Allergy (Unknown, Uncoded 10/18/24 08:46) Itchy Eyes pollen Allergy (Unknown, Uncoded 10/18/24 08:46) Watery Eye lactose Adverse Reaction (Intermediate, Uncoded 10/18/24 08:46) Abdominal Pain Dental Screening Dental Screen Date: 02/02/24 HPI HPI Comments History of Present Illness Details This is a 24-year-old female with a past medical history of perennial allergic rhinitis, mild intermittent asthma and migraines presenting for a physical exam. ROS: Constitutional: No unexplained weight loss, fever, chills or night sweats. Eyes: No vision changes, blurry vision, double vision Respiratory: No shortness of breat Cardiovascular: No chest pain Gastrointestinal: No anorexia, Diarrhea, blood in stools. See HPI. Genitourinary: No dysuria, hematuria, urinary frequency. Neurologic: No headache, dizziness, syncope Hematologic/Lymphatics: No bleeding or bruising. No painful lymph nodes. Skin: No rash or itching. Endocrine: No cold or heat intolerance. No polyuria or polydipsia. Physical exam: Constitutional: Alert, in no distress. Eyes: Pupils are equal, round and reactive to light. Extraocular muscles intact. Neck: Supple, Full range of motion. No lymphadenopathy. No palpable thyroid masses. Respiratory: Clear to auscultation. Cardiovascular: S1 S2 regular. No murmurs. Gastrointestinal: Abdomen soft, non-tender, non-distended. Normal bowel sounds. No palpable masses. Genitourinary: No costovertebral angle tenderness. Neurologic: No focal neurological deficits. Skin: No rashes or lesions. Extremities: Warm and well perfused. No clubbing, cyanosis or edema. Psychiatric: Normal mood and affect [facility] Medical History (Updated 08/05/24 @ 10:44 by BOBBY Guzman) Uncontrolled asthma Abnormal liver ultrasound Mild anemia Nausea Upper abdominal pain Fatigue Perennial allergic rhinitis with seasonal variation Mild intermittent asthma in adult without complication Lactose intolerance Migraines Acne vulgaris Bartholin's gland cyst Cyst of left Bartholin's gland Surgical History (Updated 02/02/24 @ 15:29 by BOBBY Guzman) [place] teeth removed Family History (Updated 02/02/24 @ 15:48 by BOBBY Guzman) Mother Asthma Brother Heart failure Social History Household Members: Family Both parents involved: Yes Housing: House Alcohol intake: current Alcohol intake frequency: holidays/special occasions only Patient Tobacco Use Status: Never used Tobacco e-Cigarette/Vaping Use: Never Used Second Hand Smoke Exposure: No service: No Current occupational status: employed and student 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 13611 - PHQ-9 Billing: Patient declined-do not bill Source: Developed by Drs. Mando Umana, Meghana Martin, Matt Ramos and colleagues, with an educational larissa from [employer]. Thrive Questionnaire Date Thrive assessed: 10/18/24 I am a: Patient What is your living situation today?: I have a steady place to live Within the past 12 months, did the food you bought not last and you didn't have the money to get more?: Never true Within the past 12 months, did you worry whether your food would run out before you got money to buy more?: Never true Do you have trouble paying for medicines?: No Do you have trouble getting transportation to medical appointments?: No Do you have trouble paying your heating and electricity bill?: No Do you have trouble taking care of your child, family member or friend?: No Do you have trouble with day-to-day activities such as bathing, preparing meals, shopping, managing finances, etc.?: No Are you currently unemployed and looking for a job?: No Are you interested in more education?: No THRIVE Score: 0 JENIFER-7 AMB Questionnaire JENIFER-7 Date JENIFER - 7 assessed: 10/18/24 Feeling nervous, anxious, or on edge: 0 = Not at all Not being able to stop or control worryin = Not at all Worrying too much about different things: 0 = Not at all Trouble relaxin = Not at all Being so restless that it is hard to sit still: 0 = Not at all Becoming easily annoyed or irritable: 0 = Not at all Feeling afraid as if something awful might happen: 0 = Not at all Total JENIFER-7 score (0-4 normal; 5-9 mild; 10-14 moderate; 15-21 severe): 0 Source: Developed by Drs. Mando Umana, Meghana Martin, Matt Ramos and colleagues, with an educational larissa from [employer]. JENIFER-7 Assessment Billing JENIFER-7 Assessment Tool: JENIFER-7 Assessment 25875 Physical exam (Primary Care) Tobacco/Smoking Status: Tobacco use Status Patient Tobacco Use Status Never used Tobacco 10/18/24 08:45 e-Cigarette/Vaping Use Never Used 10/18/24 08:45 Thrive Assessment: Date of Thrive Assessment Date Thrive assessed 02/02/24 10/18/24 08:45 Coding Additional Codes JENIFER-7 Assessment Billing - JENIFER-7 Assessment Tool: JENIFER-7 Assessment 14889 ([id number])
--- NOTE | 2024-10-18 08:48 | A.OFFPC_ITS ---
Vital Signs 10/18/24 08:50 Height 5 ft Weight 182 lb BMI 35.5 BP 105/54 L Blood Pressure Location Rt brachial Position Sitting Respiration 16 Pulse 83 Pulse Source Pulse Oximeter Temp 98.5 F Temp Source Oral Pulse Oximetry (%) 98 Oxygen Delivery Method Room Air Intake Visit Reasons: cpe Intake Note: patient here for CPE Pattern Lease Inspector Required: No Is last menstrual period known: Yes Last menstrual period: 10/16/24 Post menopausal: No Patient : No Allergies dust Allergy (Unknown, Uncoded 10/18/24 08:46) Itchy Eyes pollen Allergy (Unknown, Uncoded 10/18/24 08:46) Watery Eye lactose Adverse Reaction (Intermediate, Uncoded 10/18/24 08:46) Abdominal Pain Tobacco use date assessed: 10/18/24 Dental Screening Dental Screen Date: 10/18/24 Did you have a dental visit in the last 12 months?: No Did you have a dental problem in the last 6 months where you did not have access to dental care?: No Was dental information given to patient?: Patient has dentist HPI HPI Comments History of Present Illness Details This is a 24-year-old female with a past medical history of asthma, abnormal liver ultrasound, mild anemia, upper abdominal pain, allergic rhinitis, lactose intolerance and migraines presenting for a physical. I referred her to Gastroenterology, and she was contacted to schedule the appointment, but she did not call them back. She had an ultrasound of the abdomen on 05/10/2024 which showed increased hepatic parenchymal heterogeneity and echogenicity which could be associated with hepatocellular disease/hepatic steatosis. Patient's liver function tests and pancreatic enzymes were normal on 04/20/2024. The patient had orders placed and was informed to have screening for hepatitis, but this was not completed yet. She has chronic intermittent upper abdominal pain associated with nausea that occurs whether or not she eats. She describes it as sharp and aching. She has occasionally vomited with it. No blood in stools, unexplained weight loss or hematemesis. Frequency of symptoms has reduced from most days of the week to once a week or less. She has a history of mild anemia. She had also been instructed to do blood work for B12, iron and ferritin and anew blood count. They were not completed yet. She was referred [facility] for asthma and allergic rhinitis. Currently using Advair, Zyrtec and albuterol as needed. Patient reports her asthma symptoms are much better. She has [facility] She is due for a Tdap vaccine - she will schedule this at her pharmacy. Declined today due to allergy skin testing tomorrow. Declines flu vaccine. She will schedule her annual gynecologic exam. ROS: Constitutional: No unexplained weight loss, fever, chills, fatigue or night sweats. Eyes: No vision changes, blurry vision, double vision, eye pain, eye redness, eye discharge. ENT: No hearing loss, sneezing, congestion, runny nose or sore throat. +intermittent itching in the ears Respiratory: No shortness of breath, cough or sputum production. Cardiovascular: No chest pain, chest pressure or chest discomfort. No palpitations or pedal edema. Gastrointestinal: See HPI Genitourinary: No dysuria, hematuria, urinary frequency. Neurologic: No headache, dizziness, syncope, unilateral weakness, ataxia, numbness or tingling in the extremities. Musculoskeletal: No muscle pain, back pain, joint pain or swelling. Hematologic/Lymphatics: No bleeding or bruising. No painful lymph nodes. Skin: +acne Endocrine: No cold or heat intolerance. No polyuria or polydipsia. Psychiatric: No depression or anxiety. No SI/HI. Physical exam: Constitutional: Alert, in no distress. Head: Normocephalic. Eyes: Pupils are equal, round and reactive to light. Extraocular muscles intact. Ear, Nose and Throat: Excessive, dry, brown cerumen bilaterally obscuring the view of the tympanic membranes..Normal nasal mucosa. No nasal discharge. No oral lesions. Neck: Supple, Full range of motion. No lymphadenopathy. No palpable thyroid masses. Respiratory: Clear to auscultation. Cardiovascular: S1 S2 regular. No murmurs. Gastrointestinal: Abdomen soft, non-tender, non-distended. Normal bowel sounds. No palpable masses. Neurologic: No focal neurological deficits. Symmetric patellar reflexes. Moves all extremities spontaneously. Sensation intact bilaterally. Skin: Acneiform lesions on face Musculoskeletal: No gross deformities. Normal range of motion. Extremities: Warm and well perfused. No clubbing, cyanosis or edema. 3+ peripheral pulses bilaterally. Psychiatric: Normal mood and affect [facility] Medical History (Updated 10/18/24 @ 14:11 by BOBBY Guzman) Impacted cerumen of both ears Weight gain Routine physical examination Uncontrolled asthma Abnormal liver ultrasound Mild anemia Nausea Upper abdominal pain Fatigue Perennial allergic rhinitis with seasonal variation Mild intermittent asthma in adult without complication Lactose intolerance Migraines Acne vulgaris Bartholin's gland cyst Cyst of left Bartholin's gland Surgical History (Updated 02/02/24 @ 15:29 by BOBBY Guzman) [place] teeth removed Family History (Updated 02/02/24 @ 15:48 by BOBBY Guzman) Mother Asthma Brother Heart failure Social History Household Members: Family Both parents involved: Yes Housing: House Alcohol intake: current Alcohol intake frequency: holidays/special occasions only Patient Tobacco Use Status: Never used Tobacco e-Cigarette/Vaping Use: Never Used Second Hand Smoke Exposure: No service: No Current occupational status: employed and student 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 1. Little interest or pleasure in doing things: not at all 2. Feeling down, depressed, or hopeless: not at all 3. Trouble falling or staying asleep, or sleeping too much: not at all 4. Feeling tired or having little energy: not at all 5. Poor appetite or overeating: several days 6. Feeling bad about yourself - or that you are a failure or have let yourself or your family down: not at all 7. Trouble concentrating on things, such as reading the newspaper or watching television: not at all 8. Moving or speaking so slowly that other people could have noticed. Or the opposite - being so fidgety or restless that you have been moving around a lot more than usual: not at all 9. Thoughts that you would be better off or of hurting yourself in some way: not at all Total score: 1 Depression Screening Interpretation: Negative Depression Screening Done: Yes 40672 - PHQ-9 Billing: Yes Source: Developed by Drs. Mando Umana, Meghana Martin, Matt Ramos and colleagues, with an educational larissa from [employer]. Thrive Questionnaire Date Thrive assessed: 10/18/24 I am a: Patient What is your living situation today?: I have a steady place to live Within the past 12 months, did the food you bought not last and you didn't have the money to get more?: Never true Within the past 12 months, did you worry whether your food would run out before you got money to buy more?: Never true Do you have trouble paying for medicines?: No Do you have trouble getting transportation to medical appointments?: No Do you have trouble paying your heating and electricity bill?: No Do you have trouble taking care of your child, family member or friend?: No Do you have trouble with day-to-day activities such as bathing, preparing meals, shopping, managing finances, etc.?: No Are you currently unemployed and looking for a job?: Yes Are you interested in more education?: Yes Please select the resources that you would like help with: Job search/training and Education Currently or been in a relationship where the following occur: No concerns reported THRIVE Score: 0 AUDIT C Alcohol Use Questionnaire (AUDIT-C) 1. How often do you have a drink containing alcohol?: Never 3. How often do you have six or more drinks on one occasion?: Never Total Score: 0 JENIFER-7 AMB Questionnaire JENIFER-7 Date JENIFER - 7 assessed: 10/18/24 Feeling nervous, anxious, or on edge: 0 = Not at all Not being able to stop or control worryin = Not at all Worrying too much about different things: 0 = Not at all Trouble relaxin = Not at all Being so restless that it is hard to sit still: 0 = Not at all Becoming easily annoyed or irritable: 0 = Not at all Feeling afraid as if something awful might happen: 0 = Not at all Total JENIFER-7 score (0-4 normal; 5-9 mild; 10-14 moderate; 15-21 severe): 0 Source: Developed by Drs. Mando Umana, Meghana Martin, Matt Ramos and colleagues, with an educational larissa from [employer]. JENIFER-7 Assessment Billing JENIFER-7 Assessment Tool: JENIFER-7 Assessment 39819 ACT Questionnaire In the past 4 weeks, how much of the time did your asthma keep you from getting as much done at work, school or at home?: Most of the time During the past 4 weeks, how often have you had shortness of breath?: More than once a day During the past 4 weeks, how often did your asthma symptoms wake you up at night or earlier than usual in the morning?: 2-3 nights a week During the past 4 weeks, how often have you had to use your rescue inhaler or nebulizer medication?: 2-3 times a week How would you rate your asthma control during the past 4 weeks?: Somewhat controlled Score: 11 Physical exam (Primary Care) Vital Signs: Last Vital Signs Temp 98.5 F 10/18/24 08:50 Pulse 83 10/18/24 08:50 Resp 16 10/18/24 08:50 BP 105/54 L 10/18/24 08:50 Pulse Ox 98 10/18/24 08:50 Oxygen Delivery Method Room Air 10/18/24 08:50 BMI result Body Mass Index 35.5 Tobacco/Smoking Status: Tobacco use Status Tobacco use date assessed 10/18/24 10/18/24 08:50 Patient Tobacco Use Status Never used Tobacco 10/18/24 08:50 e-Cigarette/Vaping Use Never Used 10/18/24 08:50 PHQ-9: PHQ-9 Score PHQ-9: Total score 1 10/18/24 08:56 Depression Screening Interpretation: Negative Thrive Assessment: Date of Thrive Assessment Date Thrive assessed 10/18/24 10/18/24 08:56 Currently or been in a relationship where the following occur: No concerns reported Coding Level of Care Code Est Pt Prev Care 18-39y(36021) Diagnoses Routine physical examination Z00.00 Abnormal liver ultrasound R93.2 Mild anemia D64.9 Upper abdominal pain R10.10 Mild intermittent asthma in adult without complication J45.20 Impacted cerumen of both ears H61.23 Additional Codes JENIFER-7 Assessment Billing - JENIFER-7 Assessment Tool: JENIFER-7 Assessment 38503 ([id number]) PHQ-9 - 20027 - PHQ-9 Billing: Yes ([id number]) Assessment & Plan Assessment & Plan (1) Routine physical examination: Code(s): Z00.00 - Encounter for general adult medical examination without abnormal findings Category: Medical Plan: Patient is seen today for a routine physical. As part of this visit we reviewed the following issues, which are considered and essential part of preventative health in this age group: - Breast Cancer screening - Annual Warehouse Driver exam - Blood pressure screening - Cholesterol screening - Osteoporosis prevention including calcium/vitamin D intake, weight bearing exercise & smoking cessation - Nutritional and exercise counseling - Counseling of injury prevention including fire prevention, smoke alarms and seat belt usage - Screening for depression - Prevention of and/or testing for infectious diseases - Education about skin cancer - Recommendations about immunizations - Recommendation of an eye exam (2) Abnormal liver ultrasound: Code(s): R93.2 - Abnormal findings on diagnostic imaging of liver and biliary tract Category: Medical Plan: Repeat hepatic function and check hepatitis serology. Referred anew to Gastroenterology and discuss the importance of keeping this appointment. (3) Mild anemia: Code(s): D64.9 - Anemia, unspecified Category: Medical Plan: Check CBC, B12, iron and ferritin. (4) Upper abdominal pain: Code(s): R10.10 - Upper abdominal pain, unspecified Category: Medical Plan: Interval improvement in symptoms. Recheck labs. Patient needs to follow up with Gastroenterology. Referred anew. (5) Mild intermittent asthma in adult without complication: Code(s): J45.20 - Mild intermittent asthma, uncomplicated Category: Medical Plan: Continue management per computer tester. (6) Impacted cerumen of both ears: Code(s): H61.23 - Impacted cerumen, bilateral Category: Medical Plan: Used Debrox drops for 4-5 days and return for nurse visit for irrigation. Plan Follow up in 6 weeks. Orders: Orders Vitamin B12 Today D64.9 - Anemia, unspecified, J45.20 - Mild intermittent asthma, uncomplicated, R10.10 - Upper abdominal pain, unspecified, R93.2 - Abnormal findings on diagnostic imaging of liver and biliary tract, Z00.00 - Encounter for general adult medical examination without abnormal findings, Z91.89 - Other specified personal risk factors, not elsewhere classified Lipid Panel Today D64.9 - Anemia, unspecified, E78.5 - Hyperlipidemia, unspecified, J45.20 - Mild intermittent asthma, uncomplicated, R10.10 - Upper abdominal pain, unspecified, R93.2 - Abnormal findings on diagnostic imaging of liver and biliary tract, Z00.00 - Encounter for general adult medical examination without abnormal findings Hepatitis A,B,C Profile Today D64.9 - Anemia, unspecified, J45.20 - Mild intermittent asthma, uncomplicated, R10.10 - Upper abdominal pain, unspecified, R93.2 - Abnormal findings on diagnostic imaging of liver and biliary tract, Z00.00 - Encounter for general adult medical examination without abnormal findings Hepatitis A IgM Today D64.9 - Anemia, unspecified, J45.20 - Mild intermittent asthma, uncomplicated, R10.10 - Upper abdominal pain, unspecified, R93.2 - Abnormal findings on diagnostic imaging of liver and biliary tract, Z00.00 - Encounter for general adult medical examination without abnormal findings Complete Blood Count Auto Diff Today D64.9 - Anemia, unspecified, J45.20 - Mild intermittent asthma, uncomplicated, R10.10 - Upper abdominal pain, unspecified, R93.2 - Abnormal findings on diagnostic imaging of liver and biliary tract, Z00.00 - Encounter for general adult medical examination without abnormal findings IRON PROFILE Today D64.9 - Anemia, unspecified, J45.20 - Mild intermittent asthma, uncomplicated, R10.10 - Upper abdominal pain, unspecified, R93.2 - Abnormal findings on diagnostic imaging of liver and biliary tract, Z00.00 - Encounter for general adult medical examination without abnormal findings Ferritin Today D64.9 - Anemia, unspecified, J45.20 - Mild intermittent asthma, uncomplicated, R10.10 - Upper abdominal pain, unspecified, R93.2 - Abnormal findings on diagnostic imaging of liver and biliary tract, Z00.00 - Encounter for general adult medical examination without abnormal findings TSH reflex Free T4 Today R63.5 - Abnormal weight gain Liver Panel Today D64.9 - Anemia, unspecified, J45.20 - Mild intermittent asthma, uncomplicated, R10.10 - Upper abdominal pain, unspecified, R93.2 - Abnormal findings on diagnostic imaging of liver and biliary tract, Z00.00 - Encounter for general adult medical examination without abnormal findings Referrals Gastroenterology Referral R10.10 - Upper abdominal pain, unspecified, R11.0 - Nausea, R93.2 - Abnormal findings on diagnostic imaging of liver and biliary tract Medications: New carbamide peroxide 6.5% (Debrox) 5 drps otic (ears) DAILY 4 days 15 mL 0RF Refilled tretinoin 0.01% Apply to acne lesions once daily before bedtime or in the evening. 1 appl topical BEDTIME 15 grams 3RF
[2024-10-18 08:50] VITALS: BP 105/54; PULSE 83; RESP 16; TEMP 36.9; O2SAT 98; BMI 35.5
== END 2024-10-18 09:17 | disposition home or self-care (01) ==
LOC: HO.HMCFM 08:36
PROVIDERS: PCP Physician Assistant Medical; Visit Provider Physician Assistant Medical
DX: Z00.00 Encounter for general adult medical examination without abnormal findings (principal); R93.2 Abnormal findings on diagnostic imaging of liver and biliary tract; D64.9 Anemia, unspecified; R10.10 Upper abdominal pain, unspecified; J45.20 Mild intermittent asthma, uncomplicated; H61.23 Impacted cerumen, bilateral

== ENCOUNTER 2024-10-18 08:35 | Outpatient (REF) | payer OTHER, SELFPAY ==
[2024-10-18 11:27] LABS: MANUAL DIFF FLAG NO
[2024-10-18 11:35] LABS: Basophils Percent Auto 0.6 % (0-2); Eosinophils Absolute Auto 0.4 X10*3/uL (0.0-0.4); Eosinophils Percent Auto 6.8 % (0-4); Hematocrit 36.5 % (37.0-47.0); Hemoglobin 12.2 g/dl (12.0-16.0); Imm Gran Abs Auto 0.02 X10*3/uL (0.00-0.03); Imm Gran Pct Auto 0.3 % (0.0-0.4); Lymphocytes Absolute Auto 2.2 X10*3/uL (1.2-4.9); Lymphocytes Percent Auto 34.8 % (20-40); Mean Corpuscular HGB Conc 33.4 g/dl (31.0-35.0); Mean Corpuscular Volume 86.7 fL (80.0-98.0); Mean Platelet Volume 10.7 fL (9.4-12.3); Monocytes Absolute Auto 0.5 X10*3/uL (0.1-1.2); Monocytes Percent Auto 7.9 % (2-11); Neutrophils Absolute Auto 3.1 x10*3/uL (2.0-8.3); Neutrophils Percent Auto 49.6 % (45-73); Platelet Count 291 X10*3/uL (160-400); Red Blood Count 4.21 X10*6/uL (4.20-5.50); Red Cell Distribution Width 12.6 % (11.0-16.0); White Blood Count 6.2 X10*3/uL (4.8-10.8)
[2024-10-18 12:22] LABS: Vitamin B12 435 pg/mL (200-900)
[2024-10-18 12:33] LABS: HBS Num1 1.21 mIU/mL (0-7.99); HBc Num1 0.17 S/CO (0.00-0.79); HBsAGNum1 0.28 S/CO (0.00-0.99); Hepatitis A Antibody IgM 0.37 Index (0-0.79); Hepatitis B Core Antibody Nonreactive (Nonreactive); Hepatitis B Surface Antigen Negative (Negative); ~HepC Num1 0.18 S/CO (0.00-0.79); ~Hepatitis A Antibody IgM Nonreactive (Nonreactive); ~Hepatitis B Surface Antibody NONREACTIVE (Nonreactive); ~Hepatitis C Antibody Nonreactive (Nonreactive)
[2024-10-18 12:34] LABS: Hepatitis A Antibody IgM 0.24 Index (0-0.79); ~Hepatitis A Antibody IgM Nonreactive (Nonreactive)
[2024-10-18 12:35] LABS: Ferritin 47 ng/mL (10-122); TSH reflex Free T4 0.56 uIU/mL (0.32-4.0)
[2024-10-18 12:56] LABS: Alanine Aminotransferase 16 U/L (0-31); Albumin Level 4.2 g/dL (3.5-5.0); Alkaline Phosphatase 71 U/L (39-117); Aspartate Amino Transferase 25 U/L (5-31); Bilirubin Direct 0.1 mg/dL (0.0-0.5); Bilirubin Total 0.3 mg/dL (0.0-1.0); Cholesterol 172 mg/dL (<200); HDL Cholesterol 53 mg/dL (>40); Iron 42 mcg/dL (30-160); LDL Cholesterol Calculated 107 mg/dL (<100); Percent Iron Saturation 16 % (15-50); Total Iron Binding Capacity 265 mcg/dL (228-428); Total Protein 7.7 g/dL (6.5-8.0); Triglycerides 61 mg/dL (<150); Unsaturated Iron Binding 223 ug/dL
== END 2024-10-18 08:36 | disposition home or self-care (01) ==
LOC: HO.WFDLDS 08:35
PROVIDERS: PCP Physician Assistant Medical; Visit Provider Physician Assistant Medical
DX: Z00.00 Encounter for general adult medical examination without abnormal findings (principal); R93.2 Abnormal findings on diagnostic imaging of liver and biliary tract; D64.9 Anemia, unspecified; R10.10 Upper abdominal pain, unspecified; J45.20 Mild intermittent asthma, uncomplicated; H61.23 Impacted cerumen, bilateral; E78.5 Hyperlipidemia, unspecified; R63.5 Abnormal weight gain; Z68.35 Body mass index [BMI] 35.0-35.9, adult
CPT/HCPCS: 36415; 80061; 80076; 82607; 82728; 83540; 84443; 85025; 86704; 86706; 86709; 86803; 87340; 96127; 96160; 99395

== ENCOUNTER 2024-10-20 18:01 | Outpatient (REF) | payer OTHER, SELFPAY ==
--- NOTE | ~2024-10-20 | MR_ITS ---
EXAMINATION: MR ANGIOGRAPHY BRAIN WITHOUT CONTRAST CLINICAL INFORMATION: Brain aneurysm in the family history. COMPARISON: Correlated to CT angiogram brain dated December 20, 2022. TECHNIQUE: Axial 3-D [id number]. Maximum intensity projections. No IV contrast. FINDINGS: Anterior cerebral circulation: ICAs: No flow signal gap. No abrupt cut off. Contour irregularity in the cavernous supraclinoid segments. MCA's: No flow signal gap. No abrupt cut off. Bifurcation/trifurcation segments demonstrated no flow signal irregularity. ACAs: No flow signal gap. No abrupt cut off. Anterior communicating artery flow signal is present. Ophthalmic arteries flow signal is present. The origin of the left ophthalmic artery is not fully evaluated. Posterior communicating arteries flow signal is present. Posterior cerebral circulation: V3/V4 segments: Dominant left vertebral artery with normal flow signal without flow signal gap or intimal flap. Right vertebral artery ends in a right posterior inferior cerebellar artery without flow signal irregularity. Basilar artery: No flow signal gap or intimal flap. Anterior inferior cerebral arteries flow signal is normal. Superior cerebellar arteries flow signal is normal. audit intern: No flow signal gap or abrupt cut off. MR/MR angio head wo con IMPRESSION: No aneurysm, yocha dehe of [place]. Left vertebral artery is dominant. Right vertebral artery and seen right PICA. Complete yocha dehe of [place]. Electronically signed by: Jt Akhtar MD 10/22/2024 07:06 AM EDT
== END 2024-10-20 18:02 | disposition home or self-care (01) ==
LOC: HO.MRI 18:01
PROVIDERS: PCP Physician Assistant Medical; Visit Provider Registered Nurse
DX: G43.909 Migraine, unspecified, not intractable, without status migrainosus (principal); Z82.3 Family history of stroke
CPT/HCPCS: 70544

== ENCOUNTER → 2024-10-20 18:18 | Outpatient (BNV) | payer OTHER, SELFPAY | PROVIDERS: PCP Physician Assistant Medical; Visit Provider Radiology Diagnostic Radiology | DX: G43.909 Migraine, unspecified, not intractable, without status migrainosus (principal) | CPT/HCPCS: 70544 ==

== ENCOUNTER → 2024-10-25 09:30 | Outpatient (BNVA) | payer OTHER, SELFPAY | PROVIDERS: PCP Physician Assistant Medical; Visit Provider Physician Assistant Medical | DX: Z01.10 Encounter for examination of ears and hearing without abnormal findings (principal) | CPT/HCPCS: 99211 ==

== ENCOUNTER 2024-12-02 09:18 | Outpatient (AMB) | payer OTHER, SELFPAY ==
--- NOTE | 2024-12-02 09:25 | A.OFFPC_ITS ---
Vital Signs 12/02/24 09:36 Height 5 ft Weight 171 lb BMI 33.4 BP 100/64 Blood Pressure Location Rt brachial Position Sitting Pulse 85 Pulse Source Pulse Oximeter Temp 98.6 F Temp Source Temporal Artery Scan Pulse Oximetry (%) 98 Oxygen Delivery Method Room Air Intake Visit Reasons: follow up Intake Note: Shanelle presents in the office today for a follow up. Patient went to denitrator operator and started getting allergy shots yesterday. Allergies dust Allergy (Unknown, Uncoded 10/18/24 08:46) Itchy Eyes pollen Allergy (Unknown, Uncoded 10/18/24 08:46) Watery Eye lactose Adverse Reaction (Intermediate, Uncoded 10/18/24 08:46) Abdominal Pain Tobacco use date assessed: 12/02/24 Dental Screening Dental Screen Date: 12/02/24 Did you have a dental visit in the last 12 months?: No Did you have a dental problem in the last 6 months where you did not have access to dental care?: No Was dental information given to patient?: Yes HPI HPI Comments History of Present Illness Details This is a 24-year-old female with a past medical history of asthma, abnormal liver ultrasound, mild anemia, upper abdominal pain, allergic rhinitis, lactose intolerance and migraines presenting for follow up. She had an ultrasound of the abdomen on 05/10/2024 which showed increased hepatic parenchymal heterogeneity and echogenicity which could be associated with hepatocellular disease/hepatic steatosis. Patient's liver function tests and pancreatic enzymes were normal on 04/20/2024. She has chronic intermittent upper abdominal pain associated with nausea that occurs whether or not she eats. She describes it as sharp and aching. She has occasionally vomited with it but not recently. No blood in stools, unexplained weight loss or hematemesis. She previously had symptoms most days of the week, but now it occurs once a week or less. She was referred to Gastroenterology, but she did not call them back initially. I referred her again. Gastroenterology just called her today to schedule an appointment. She has a history of mild anemia. She is taking ferrous sulfate ER 140 mg every 3 days when she remembers. She repeated her lab work 10/18/2024. Anemia resolved. Iron profile, ferritin, hepatic function, B12, TSH normal. Screening for hepatitis a, B and C negative. LDL cholesterol 107, triglycerides 61, HDL 53. She was referred to Allergy and immunology for asthma and allergic rhinitis. Currently using Advair, Zyrtec and albuterol as needed. Patient reports her asthma symptoms are much better since starting allergy injections. She has not required albuterol at all within the past month. She is working on weight loss, and she has lost 11 lb since her last visit. She is eating a lot healthier. She was interested in a GLP 1, but I have advised her would like her to see the Gastroenterology for evaluation of the above concerns 1st. She is due for a Tdap vaccine - she will schedule this at her pharmacy. Declined today. She is going to receive hepatitis B at the pharmacy because her hep b surface antibody was negative. ROS: Constitutional: No unexplained weight loss, fever, chills, fatigue or night sweats. ENT: No hearing loss, sneezing, congestion, runny nose or sore throat. Respiratory: No shortness of breath, cough or sputum production. Cardiovascular: No chest pain, chest pressure or chest discomfort. Gastrointestinal: See HPI Hematologic/Lymphatics: No bleeding or bruising. No painful lymph nodes. Skin: +acne -insurance approved the tretinoin refill Psychiatric: No depression or anxiety. No SI/HI. Physical exam: Constitutional: Alert, in no distress. Head: Normocephalic. Neck: Supple, Full range of motion. No lymphadenopathy. No palpable thyroid masses. Respiratory: Clear to auscultation. Cardiovascular: S1 S2 regular. No murmurs. Gastrointestinal: Abdomen soft, non-tender, non-distended. Normal bowel sounds. No palpable masses. Extremities: Warm and well perfused. No clubbing, cyanosis or edema. Psychiatric: Normal mood and affect [facility] Medical History (Updated 10/18/24 @ 14:11 by BOBBY Guzman) Impacted cerumen of both ears Weight gain Routine physical examination Uncontrolled asthma Abnormal liver ultrasound Mild anemia Nausea Upper abdominal pain Fatigue Perennial allergic rhinitis with seasonal variation Mild intermittent asthma in adult without complication Lactose intolerance Migraines Acne vulgaris Bartholin's gland cyst Cyst of left Bartholin's gland Surgical History (Updated 02/02/24 @ 15:29 by BOBBY Guzman) [place] teeth removed Family History Mother Asthma Brother Heart failure Social History (Updated 12/02/24 @ 09:31 by Susana Davis MA) Household Members: Family Both parents involved: Yes Housing: House Alcohol intake: current Alcohol intake frequency: holidays/special occasions only Comment: Minimmally Patient Tobacco Use Status: Never used Tobacco e-Cigarette/Vaping Use: Never Used Second Hand Smoke Exposure: No service: No Current occupational status: employed and student 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 1. Little interest or pleasure in doing things: not at all 2. Feeling down, depressed, or hopeless: not at all 3. Trouble falling or staying asleep, or sleeping too much: not at all 4. Feeling tired or having little energy: several days 5. Poor appetite or overeating: not at all 6. Feeling bad about yourself - or that you are a failure or have let yourself or your family down: not at all 7. Trouble concentrating on things, such as reading the newspaper or watching television: not at all 8. Moving or speaking so slowly that other people could have noticed. Or the opposite - being so fidgety or restless that you have been moving around a lot more than usual: not at all 9. Thoughts that you would be better off or of hurting yourself in some way: not at all Total score: 1 Depression Screening Interpretation: Negative Depression Screening Done: Yes 90800 - PHQ-9 Billing: Patient declined-do not bill Source: Developed by Drs. Mando Umana, Meghana Martin, Matt Ramos and colleagues, with an educational larissa from [employer]. Thrive Questionnaire Date Thrive assessed: 12/02/24 I am a: Patient What is your living situation today?: I have a steady place to live Within the past 12 months, did the food you bought not last and you didn't have the money to get more?: Never true Within the past 12 months, did you worry whether your food would run out before you got money to buy more?: Never true Do you have trouble paying for medicines?: No Do you have trouble getting transportation to medical appointments?: No Do you have trouble paying your heating and electricity bill?: No Do you have trouble taking care of your child, family member or friend?: No Do you have trouble with day-to-day activities such as bathing, preparing meals, shopping, managing finances, etc.?: No Are you currently unemployed and looking for a job?: Yes Are you interested in more education?: Yes Please select the resources that you would like help with: None Currently or been in a relationship where the following occur: No concerns reported and I choose not to answer THRIVE Score: 0 AUDIT C Alcohol Use Questionnaire (AUDIT-C) 1. How often do you have a drink containing alcohol?: Monthly or less 2. How many drinks containing alcohol do you have on a typical day when you are drinking?: 1 or 2 3. How often do you have six or more drinks on one occasion?: Never Total Score: 1 Score Reviewed/Action Taken: No JENIFER-7 AMB Questionnaire JENIFER-7 Date JENIFER - 7 assessed: 12/02/24 Feeling nervous, anxious, or on edge: 0 = Not at all Not being able to stop or control worryin = Not at all Worrying too much about different things: 0 = Not at all Trouble relaxin = Not at all Being so restless that it is hard to sit still: 0 = Not at all Becoming easily annoyed or irritable: 1 = Several days Feeling afraid as if something awful might happen: 0 = Not at all Total JENIFER-7 score (0-4 normal; 5-9 mild; 10-14 moderate; 15-21 severe): 1 Source: Developed by Drs. Mando Umana, Meghana Martin, Matt Ramos and colleagues, with an educational larissa from [employer]. JENIFER-7 Assessment Billing JENIFER-7 Assessment Tool: JENIFER-7 Assessment 37172 ACT Questionnaire In the past 4 weeks, how much of the time did your asthma keep you from getting as much done at work, school or at home?: None of the time During the past 4 weeks, how often have you had shortness of breath?: Not at all During the past 4 weeks, how often did your asthma symptoms wake you up at night or earlier than usual in the morning?: Not at all During the past 4 weeks, how often have you had to use your rescue inhaler or nebulizer medication?: Once a week or less How would you rate your asthma control during the past 4 weeks?: Well controlled ACT Interpretation: Positive Score: 23 Physical exam (Primary Care) Tobacco/Smoking Status: Tobacco use Status Tobacco use date assessed 12/02/24 12/02/24 09:32 Patient Tobacco Use Status Never used Tobacco 12/02/24 09:31 e-Cigarette/Vaping Use Never Used 12/02/24 09:31 Depression Screening Interpretation: Negative Thrive Assessment: Date of Thrive Assessment Date Thrive assessed 10/18/24 12/02/24 09:27 Currently or been in a relationship where the following occur: No concerns reported and I choose not to answer Coding Level of Care Code Est Pt Level 4 (47549) Complex EM visit Add On G2211 Diagnoses Abnormal liver ultrasound R93.2 Mild anemia D64.9 Upper abdominal pain R10.10 Mild intermittent asthma in adult without complication J45.20 Additional Codes Asthma Control Questionnaire - ACT Interpretation: Positive ([id number]) JENIFER-7 Assessment Billing - JENIFER-7 Assessment Tool: JENIFER-7 Assessment 57814 ([id number]) Assessment & Plan Assessment & Plan (1) Abnormal liver ultrasound: Code(s): R93.2 - Abnormal findings on diagnostic imaging of liver and biliary tract Category: Medical Plan: The patient has been referred to Gastroenterology, and they contacted her to schedule the appointment. I reviewed the need for this appointment based on her abnormal ultrasound. Hepatitis testing was negative. Results are concerning for potential hepatic steatosis or hepatocellular disease. Patient is going to call Gastroenterology back to schedule the consult. (2) Mild anemia: Code(s): D64.9 - Anemia, unspecified Category: Medical Plan: We will continue to monitor this. She has increased iron rich foods in her diet, and she is supplementing with her iron tablet every 3rd day or so when she remembers. (3) Upper abdominal pain: Code(s): R10.10 - Upper abdominal pain, unspecified Category: Medical Plan: Interval improvement in symptoms. Follow up with Gastroenterology. She will call if her symptoms increase. (4) Mild intermittent asthma in adult without complication: Code(s): J45.20 - Mild intermittent asthma, uncomplicated Category: Medical Plan: Continue management per denitrator operator. Plan Follow up in 4 weeks.
[2024-12-02 09:36] VITALS: BP 100/64; PULSE 85; TEMP 37; O2SAT 98; BMI 33.4
== END 2024-12-02 09:54 | disposition home or self-care (01) ==
LOC: HO.HMCFM 09:19
PROVIDERS: PCP Physician Assistant Medical; Visit Provider Physician Assistant Medical
DX: R93.2 Abnormal findings on diagnostic imaging of liver and biliary tract (principal); D64.9 Anemia, unspecified; R10.10 Upper abdominal pain, unspecified; J45.20 Mild intermittent asthma, uncomplicated

== ENCOUNTER → 2024-12-02 09:18 | Outpatient (BNVA) | payer OTHER, SELFPAY | PROVIDERS: PCP Physician Assistant Medical; Visit Provider Physician Assistant Medical | DX: R93.2 Abnormal findings on diagnostic imaging of liver and biliary tract (principal); D64.9 Anemia, unspecified; R10.10 Upper abdominal pain, unspecified; J45.20 Mild intermittent asthma, uncomplicated | CPT/HCPCS: 96127; 96160; 99212 ==

== ENCOUNTER 2025-02-10 14:04 | Outpatient (AMB) | payer OTHER, SELFPAY ==
--- NOTE | 2025-02-10 14:13 | MHC.OFFVIS ---
Vital Signs 02/10/25 14:13 Height 5 ft Intake Visit Reasons: 3M MIGRAINE Allergies dust Allergy (Unknown, Uncoded 02/10/25 14:19) Itchy Eyes pollen Allergy (Unknown, Uncoded 02/10/25 14:19) Watery Eye lactose Adverse Reaction (Intermediate, Uncoded 02/10/25 14:19) Abdominal Pain Medication List - Last Reconciled 02/10/25 by Lea Gutierrez CNP albuterol sulfate 2.5 mg (3 mL) inhalation Q4H PRN carbamide peroxide 6.5% (Debrox) 5 drps otic (ears) DAILY 4 days cetirizine (Zyrtec) 10 mg PO DAILY PRN cyanocobalamin (vitamin B-12) 500 mcg PO .every other day 90 days ferrous sulfate ER (Slow Release Iron) 140 mg PO .every 3 days 90 days fluticasone propion-salmeterol 115-21 mcg/actuation (Advair HFA) 2 puffs inhalation BID naproxen 500 mg PO Q12H PRN ondansetron mg PO rimegepant (Nurtec ODT) 75 mg PO Q OTHER DAY tretinoin 0.01% 1 appl topical BEDTIME HPI Comments Details: She was having headache 3-4x/week with photophobia, sonophobia, nausea, and some dizziness. She did not start Nurtec every other day. She was taking Nurtec as needed which helped. Stress could trigger migraines. Sleep was okay. She was seeing dredge lever operator and getting allergy shots, which has helped with headaches some. Beta blockers such as propranolol were contraindicated due to asthma. She tried and failed and had side effects with multiple medications including topiramate, amitriptyline, nortriptyline, verapamil, Emgality, sumatriptan, rizatriptan, Naprosyn, and butalbital. She had onset of headaches in 2019 that worsened, occurring every day. She could wake up with it or it could start later in the day. It was a pounding-type pain. She had severe headache once a week where she became nonfunctional with photophobia, sonophobia, and nausea. Headaches may be worse with menstrual cycles, lack of sleep, and stress. Her mother has 20+ year history of migraines. She tried her mother's sumatriptan, but it made her feel very weird. She had Nexplanon implant in 09/2019 and was not sure if headaches were worse after. Does not usually get an aura, but sometimes will see spots in her vision. Blurred vision when she works on her laptop. [facility] Medical History (Updated 02/10/25 @ 14:16 by Lea Gutierrez CNP) Asthma Other seasonal allergic rhinitis Cerebral aneurysm Tension headache Impacted cerumen of both ears Weight gain Routine physical examination Uncontrolled asthma Abnormal liver ultrasound Mild anemia Nausea Upper abdominal pain Fatigue Perennial allergic rhinitis with seasonal variation Mild intermittent asthma in adult without complication Lactose intolerance Migraines Acne vulgaris Bartholin's gland cyst Cyst of left Bartholin's gland Surgical History (Updated 02/02/24 @ 15:29 by BOBBY Guzman) [place] teeth removed Family History (Updated 02/10/25 @ 14:26 by Lea Gutierrez CNP) Mother Asthma Migraine headache Brain aneurysm Brother Heart failure Sister Migraine headache Social History (Updated 12/02/24 @ 09:31 by Susana Davis MA) Household Members: Family Both parents involved: Yes Housing: House Alcohol intake: current Alcohol intake frequency: holidays/special occasions only Comment: Minimmally Patient Tobacco Use Status: Never used Tobacco e-Cigarette/Vaping Use: Never Used Second Hand Smoke Exposure: No service: No Current occupational status: employed and student 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 Current occupational exposures/hazards: No Sexual orientation: Straight/Heterosexual Gender identity: Female Cognitive needs: No Hearing needs: No Vision needs: No Review of Systems Const Denies chills, Denies daytime sleepiness, Denies difficulty sleeping, Denies fatigue, Denies fever(s), Denies frequent falls, Reports headache(s), Denies increased appetite, Denies poor appetite, Denies snoring, Denies weakness, Denies weight gain and Denies weight loss Eyes Denies loss of vision ENT Denies vertigo, Reports dizziness, Reports headache(s) and Denies neck pain Card Denies chest pain at rest, Denies chest pain with activity, Denies syncope, Denies leg edema, Denies palpitations, Denies dyspnea and Denies dyspnea on exertion Resp Denies cough, Denies dyspnea, Denies dyspnea on exertion and Denies snoring GI Denies abdominal pain, Denies constipation, Denies heartburn, Denies diarrhea and Denies nausea Denies urinary frequency, Denies urinary incontinence and Denies urinary urgency Musc Denies abnormal gait, Denies back pain, Denies myalgias, Denies arthralgias, Denies neck pain, Denies numbness, Denies stiffness and Denies tingling Neuro Denies abnormal gait, Denies vertigo, Reports dizziness, Denies syncope, Denies frequent falls, Reports headache(s), Denies lack of coordination, Denies loss of vision, Denies memory loss, Denies numbness, Denies Other visual disturbances, Denies restless legs, Denies seizure-like activity, Denies tingling, Denies paresthesias, Denies tremor(s) and Denies weakness Psych Denies anxiety, Denies depression, Denies auditory hallucinations, Denies memory loss, Denies visual hallucinations and Denies hallucinations Endo Denies fatigue and Denies palpitations Results Reviewed Results Reviewed: MRA brain 10/2024: No aneurysm, left vertebral artery is dominant. Assessment & Plan Assessment & Plan (1) Migraines: Code(s): G43.909 - Migraine, unspecified, not intractable, without status migrainosus Category: Medical Qualifiers: Migraine type: periodic headache syndrome Intractability: not intractable Qualified Code(s): G43.C0 - Periodic headache syndromes in child or adult, not intractable Plan: Recommend using Nurtec 75mg 1 tablet on the tongue and allow to dissolve every other day (2) Tension headache: Code(s): G44.209 - Tension-type headache, unspecified, not intractable Category: Medical Plan Meds tried: Topiramate, amitriptyline, nortriptyline, verapamil, sumatriptan, rizatriptan, naprosyn, butalbital, nurtec as needed (worked), emgality (made headaches worse), beta blockers such as propranolol contraindicated due to asthma Coding Level of Care Code Est Pt Level 4 (04091) Diagnoses Periodic headache syndrome, not intractable G43.C0 Migraine type: periodic headache syndrome Intractability: not intractable Tension headache G44.209
== END 2025-02-10 14:30 | disposition home or self-care (01) ==
LOC: HO.HSM 14:05
PROVIDERS: PCP Physician Assistant Medical; Referring Provider Pediatrics; Visit Provider Registered Nurse
DX: G43.C0 Periodic headache syndromes in child or adult, not intractable (principal); G44.209 Tension-type headache, unspecified, not intractable
CPT/HCPCS: 99214

== ENCOUNTER → 2025-02-10 14:04 | Outpatient (BNVA) | payer OTHER, SELFPAY | PROVIDERS: PCP Physician Assistant Medical; Referring Provider Pediatrics; Visit Provider Registered Nurse | DX: G43.C0 Periodic headache syndromes in child or adult, not intractable (principal); G44.209 Tension-type headache, unspecified, not intractable | CPT/HCPCS: 99212 ==

== ENCOUNTER 2025-04-11 14:56 | Outpatient (AMB) | payer OTHER, SELFPAY ==
--- NOTE | 2025-04-11 15:06 | MHC.PC.OV ---
Vital Signs 04/11/25 15:12 Height 5 ft Weight 173 lb BMI 33.8 BP 106/70 Blood Pressure Location Rt brachial Position Sitting Respiration 16 Pulse 78 Pulse Source Pulse Oximeter Temp 99.1 F Temp Source Temporal Artery Scan Pulse Oximetry (%) 95 Intake Visit Reasons: follow up weight discussion, GI, asthma Intake Note: Shanelle presents in the office today to follow up to weight, asthma and GI issues. Allergies dust Allergy (Unknown, Uncoded 04/11/25 15:08) Itchy Eyes pollen Allergy (Unknown, Uncoded 04/11/25 15:08) Watery Eye lactose Adverse Reaction (Intermediate, Uncoded 04/11/25 15:08) Abdominal Pain Medication List - Last Reconciled 04/12/25 by BOBBY Guzman albuterol sulfate 2.5 mg (3 mL) inhalation Q4H PRN cyanocobalamin (vitamin B-12) 500 mcg PO .every other day 90 days ferrous sulfate ER (Slow Release Iron) 140 mg PO .every 3 days 90 days fexofenadine (Judy Allergy) 180 mg PO DAILY fluticasone propion-salmeterol 115-21 mcg/actuation (Advair HFA) 2 puffs inhalation BID ondansetron 4 mg PO DAILY PRN 30 days rimegepant (Nurtec ODT) 75 mg PO Q OTHER DAY tretinoin 0.01% 1 appl topical BEDTIME Tobacco use date assessed: 04/11/25 Dental Screening Dental Screen Date: 04/11/25 Did you have a dental visit in the last 12 months?: No Did you have a dental problem in the last 6 months where you did not have access to dental care?: No Was dental information given to patient?: Yes HPI HPI Comments History of Present Illness Details This is a 24-year-old female with a past medical history of asthma, abnormal liver ultrasound, mild anemia, upper abdominal pain, allergic rhinitis, lactose intolerance and migraines presenting for follow up. She had an ultrasound of the abdomen on 05/10/2024 which showed increased hepatic parenchymal heterogeneity and echogenicity which could be associated with hepatocellular disease/hepatic steatosis. Patient's liver function tests and pancreatic enzymes were normal on 04/20/2024. She has chronic intermittent upper abdominal pain associated with nausea that occurs whether or not she eats. She describes it as sharp and aching. She has occasionally vomited, but this has not occurred for awhile. No blood in stools, unexplained weight loss or hematemesis. She previously had symptoms most days of the week, but now it occurs once a week or less. She was referred to Gastroenterology, but she did not call them back initially. I referred her again, and she has the appointment scheduled on 04/20/2025. She has noticed that taking Lactaid it helps to minimize her symptoms significantly. She has a history of mild anemia. She is taking ferrous sulfate ER 140 mg every 3 days when she remembers. She repeated her lab work 10/18/2024. Anemia resolved. Iron profile, ferritin, hepatic function, B12, TSH normal. Screening for hepatitis a, B and C negative. LDL cholesterol 107, triglycerides 61, HDL 53. She saw Neurology for evaluation of headaches. She use prescribed Nurtec. Her symptoms are stable, but she is more concerned about getting to a root cause of the migraines though she realizes this may be multifactorial. She is interested in referral to the [facility] headache clinic. She was referred to Allergy and immunology for asthma and allergic rhinitis. Currently using Advair, Zyrtec and albuterol as needed. Patient reports her asthma symptoms are much better since starting allergy injections. She has not required albuterol at all within the past couple of months. She would like a referral to ear nose and throat because she gets tonsil stones on the right side. She picks them out with tweezers though she know this is not advised. She noticed whitish bumps on her heels only when she applies pressure is standing. She has varicose veins on her lower extremities. They ache sometimes when she is standing, and she does not like the appearance. Requests referral to vascular surgery. ROS: Constitutional: No unexplained weight loss, fever, chills, fatigue or night sweats. ENT: No hearing loss, sneezing, congestion, runny nose or sore throat. Respiratory: No shortness of breath, cough or sputum production. Cardiovascular: No chest pain, chest pressure or chest discomfort. Gastrointestinal: See HPI Hematologic/Lymphatics: No bleeding or bruising. No painful lymph nodes. Psychiatric: No depression or anxiety. No SI/HI. Physical exam: Constitutional: Alert, in no distress. Head: Normocephalic. Neck: Supple, Full range of motion. No lymphadenopathy. No palpable thyroid masses. Respiratory: Clear to auscultation. Cardiovascular: S1 S2 regular. No murmurs. Gastrointestinal: Abdomen soft, non-tender, non-distended. Normal bowel sounds. No palpable masses. No rebound or guarding. Extremities: Warm and well perfused. No clubbing, cyanosis or edema. There are varicose extremities noted in the back of the knees and calves. Psychiatric: Normal mood and affect Feet: Nontender, soft, whitish small bumps on the heels when patient stands or pressure is applied to the heels. [facility] Medical History (Updated 04/12/25 @ 09:05 by BOBBY Guzman) Piezogenic pedal papule Tonsillolith Varicose vein of leg Asthma Other seasonal allergic rhinitis Cerebral aneurysm Tension headache Impacted cerumen of both ears Weight gain Routine physical examination Uncontrolled asthma Abnormal liver ultrasound Mild anemia Nausea Upper abdominal pain Fatigue Perennial allergic rhinitis with seasonal variation Mild intermittent asthma in adult without complication Lactose intolerance Migraines Acne vulgaris Bartholin's gland cyst Cyst of left Bartholin's gland Surgical History (Updated 02/02/24 @ 15:29 by BOBBY Guzman) [place] teeth removed Family History Mother Asthma Migraine headache Brain aneurysm Brother Heart failure Sister Migraine headache Social History (Updated 04/11/25 @ 15:12 by Susana Davis MA) Household Members: Family Both parents involved: Yes Housing: House Alcohol intake: current Alcohol intake frequency: holidays/special occasions only Comment: Minimmally Patient Tobacco Use Status: Never used Tobacco e-Cigarette/Vaping Use: Never Used Second Hand Smoke Exposure: No service: No Current occupational status: employed and student 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 Mando Umana, Meghana Martin, Matt Ramos and colleagues, with an educational larissa from [employer]. Physical exam (Primary Care) Vital Signs: Last Vital Signs Temp 99.1 F 04/11/25 15:12 Pulse 78 04/11/25 15:12 Resp 16 04/11/25 15:12 BP 106/70 04/11/25 15:12 Pulse Ox 95 04/11/25 15:12 BMI result Body Mass Index 33.8 Tobacco/Smoking Status: Tobacco use Status Tobacco use date assessed 04/11/25 04/11/25 15:16 Patient Tobacco Use Status Never used Tobacco 04/11/25 15:16 e-Cigarette/Vaping Use Never Used 04/11/25 15:16 Thrive Assessment: Date of Thrive Assessment Date Thrive assessed 12/02/24 04/11/25 15:16 Coding Level of Care Code Est Pt Level 4 (61954) Complex EM visit Add On G2211 Diagnoses Periodic headache syndrome, not intractable G43.C0 Migraine type: periodic headache syndrome Intractability: not intractable Lactose intolerance E73.9 Mild intermittent asthma in adult without complication J45.20 Perennial allergic rhinitis with seasonal variation J30.89; J30.2 Upper abdominal pain R10.10 Abnormal liver ultrasound R93.2 Varicose veins of both lower extremities with pain I83.813 Varicose vein complication: pain Laterality: bilateral Tonsillolith J35.8 Piezogenic pedal papule R23.8 Assessment & Plan Assessment & Plan (1) Migraines: Code(s): G43.909 - Migraine, unspecified, not intractable, without status migrainosus Category: Medical Qualifiers: Migraine type: periodic headache syndrome Intractability: not intractable Qualified Code(s): G43.C0 - Periodic headache syndromes in child or adult, not intractable Plan: Continue current medication regimen. Stay well hydrated. Make sure to get adequate sleep. Referred to [facility] Neurology. Recommended trial of a dairy free diet since she has lactose intolerance to see if this improves symptoms over the course of a couple of weeks. (2) Lactose intolerance: Code(s): E73.9 - Lactose intolerance, unspecified Category: Medical Plan: Avoid lactose products. She has Lactaid pills. (3) Mild intermittent asthma in adult without complication: Code(s): J45.20 - Mild intermittent asthma, uncomplicated Category: Medical Plan: Continue current regimen per Allergy and immunology. (4) Perennial allergic rhinitis with seasonal variation: Code(s): J30.89 - Other allergic rhinitis; J30.2 - Other seasonal allergic rhinitis Category: Medical Plan: Interval improvement with allergy injections. (5) Upper abdominal pain: Code(s): R10.10 - Upper abdominal pain, unspecified Category: Medical Plan: She has an appointment scheduled with Gastroenterology for further evaluation (6) Abnormal liver ultrasound: Code(s): R93.2 - Abnormal findings on diagnostic imaging of liver and biliary tract Category: Medical Plan: She has an appointment scheduled with Gastroenterology for further evaluation. Recommended avoidance of alcohol. Avoid processed foods and high-cholesterol foods. (7) Varicose vein of leg: Code(s): I83.90 - Asymptomatic varicose veins of unspecified lower extremity Category: Medical Qualifiers: Varicose vein complication: pain Laterality: bilateral Qualified Code(s): I83.813 - Varicose veins of bilateral lower extremities with pain Plan: Refer to vascular surgery. (8) Tonsillolith: Code(s): J35.8 - Other chronic diseases of tonsils and adenoids Category: Medical Plan: Patient advised not to manipulate tonsil stones. She can inadvertently cause an infection. Referred to ENT. (9) Piezogenic pedal papule: Code(s): R23.8 - Other skin changes Category: Medical Plan: Reassured patient about the benign nature of pedal papules. If she develops pain or discomfort we can refer to podiatry. Plan Follow up in 8 weeks. Orders: Referrals Neurology Referral G43.C0 - Periodic headache syndromes in child or adult, not intractable Vascular Surgery Referral I83.90 - Asymptomatic varicose veins of unspecified lower extremity Ear/Nose/Throat Referral J35.8 - Other chronic diseases of tonsils and adenoids
[2025-04-11 15:12] VITALS: BP 106/70; PULSE 78; RESP 16; TEMP 37.3; O2SAT 95; BMI 33.8
== END 2025-04-11 15:46 | disposition home or self-care (01) ==
LOC: HO.HMCFM 14:57
PROVIDERS: PCP Physician Assistant Medical; Visit Provider Physician Assistant Medical
DX: G43.C0 Periodic headache syndromes in child or adult, not intractable (principal); E73.9 Lactose intolerance, unspecified; J45.20 Mild intermittent asthma, uncomplicated; J30.89 Other allergic rhinitis; J30.2 Other seasonal allergic rhinitis; R10.10 Upper abdominal pain, unspecified; R93.2 Abnormal findings on diagnostic imaging of liver and biliary tract; I83.813 Varicose veins of bilateral lower extremities with pain; J35.8 Other chronic diseases of tonsils and adenoids; R23.8 Other skin changes

== ENCOUNTER → 2025-04-11 14:56 | Outpatient (BNVA) | payer OTHER, SELFPAY | PROVIDERS: PCP Physician Assistant Medical; Visit Provider Physician Assistant Medical | DX: G43.C0 Periodic headache syndromes in child or adult, not intractable (principal); E73.9 Lactose intolerance, unspecified; J45.20 Mild intermittent asthma, uncomplicated; J30.89 Other allergic rhinitis; J30.2 Other seasonal allergic rhinitis; R10.10 Upper abdominal pain, unspecified; R93.2 Abnormal findings on diagnostic imaging of liver and biliary tract; I83.813 Varicose veins of bilateral lower extremities with pain; J35.8 Other chronic diseases of tonsils and adenoids; R23.8 Other skin changes | CPT/HCPCS: 99212 ==

== ENCOUNTER 2025-04-20 13:35 | Outpatient (AMB) | payer OTHER, SELFPAY ==
--- NOTE | 2025-04-20 13:36 | MHC.OFFVIS ---
Vital Signs 04/20/25 13:38 Height 5 ft Weight 174 lb 2.643 oz BMI 34.0 BP 106/66 Blood Pressure Location Lt brachial Position Sitting Intake Visit Reasons: Abnormal findings on diagnostic imaging r/s 03/11 Intake Note: Shanelle presents in the office as a new patient for abnormal imaging findings. CC: She states that she had a cough that would not go away and it was in Aug. It last a few months. Stomach pains - loose stools. No constipation or blood with her BMs. [employer] Required: No Allergies dust Allergy (Unknown, Uncoded 04/20/25 13:40) Itchy Eyes pollen Allergy (Unknown, Uncoded 04/20/25 13:40) Watery Eye lactose Adverse Reaction (Intermediate, Uncoded 04/20/25 13:40) Abdominal Pain HPI Comments Details: 25 y.o F with PMH of who is here for hepatic steatosis. Pt reports longstanding hx of abd cramping and nausea. Pain is regardless of what she eats, not related to defecation either. Pain is sharp mostly in epigastrium. Lasts at least a few hours. Has to sleep on it, or uses a heating pad. No changes in bowel habits. She had ultrasound done as part of the workup that shows hepatic steatosis. LFTs are normal. No family history of liver disease. Patient does not drink alcohol. [facility] Medical History Piezogenic pedal papule Tonsillolith Varicose vein of leg Asthma Other seasonal allergic rhinitis Cerebral aneurysm Tension headache Impacted cerumen of both ears Weight gain Routine physical examination Uncontrolled asthma Abnormal liver ultrasound Mild anemia Nausea Upper abdominal pain Fatigue Perennial allergic rhinitis with seasonal variation Mild intermittent asthma in adult without complication Lactose intolerance Migraines Acne vulgaris Bartholin's gland cyst Cyst of left Bartholin's gland Surgical History [place] teeth removed Family History (Updated 04/20/25 @ 13:44 by DANIEL Jenkins) Mother Asthma Migraine headache Brain aneurysm Brother Heart failure Sister Migraine headache Paternal Grandmother Liver cancer Social History Household Members: Family Both parents involved: Yes Housing: House Alcohol intake: current Alcohol intake frequency: holidays/special occasions only Comment: Minimmally Patient Tobacco Use Status: Never used Tobacco e-Cigarette/Vaping Use: Never Used Second Hand Smoke Exposure: No service: No Current occupational status: employed and student 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 Current occupational exposures/hazards: No Sexual orientation: Straight/Heterosexual Gender identity: Female Cognitive needs: No Hearing needs: No Vision needs: No Review of Systems Const All systems reviewed & are unremarkable except as noted in HPI and below Physical Exam Exam Exam: No apparent distress Nonicteric Abdomen soft, nondistended Alert and oriented x3, normal gait Vital Signs: Last Vital Signs BP 106/66 04/20/25 13:38 BMI result Body Mass Index 34.0 Assessment & Plan Assessment & Plan (1) GERD (gastroesophageal reflux disease): Code(s): K21.9 - Gastro-esophageal reflux disease without esophagitis Category: Medical (2) Upper abdominal pain: Code(s): R10.10 - Upper abdominal pain, unspecified Category: Medical (3) Abnormal liver ultrasound: Code(s): R93.2 - Abnormal findings on diagnostic imaging of liver and biliary tract Category: Medical Plan 1. Abdominal pain Differentials include gastritis, duodenitis, PUD, GERD. Plan: -barium swallow -famotidine 20 mg once daily -trigger food avoidance -indication for egd contingent on response to antisecretory therapy and results of barium swallow 2. Hepatic steatosis Incidentally noted on ultrasound. Normal LFTs argue against active LUCERO. Based on fib 4 score of 0.5 and absence of other risk factors (such as T2DM, age >50, BMI >50,) patient falls under low risk for progression. Follow up 2 months Orders: Orders [place] barium swallow Today K21.9 - Gastro-esophageal reflux disease without esophagitis Medications: New famotidine 20 mg PO DAILY 90 tabs 0RF 90 days Coding Level of Care Code New Pt Level 4 (60311) Diagnoses GERD (gastroesophageal reflux disease) K21.9 Upper abdominal pain R10.10 Abnormal liver ultrasound R93.2
[2025-04-20 13:38] VITALS: BP 106/66; BMI 34.0
== END 2025-04-20 14:06 | disposition home or self-care (01) ==
LOC: HO.HGI 13:35
PROVIDERS: PCP Physician Assistant Medical; Visit Provider Internal Medicine
DX: K21.9 Gastro-esophageal reflux disease without esophagitis (principal); R10.10 Upper abdominal pain, unspecified; R93.2 Abnormal findings on diagnostic imaging of liver and biliary tract
CPT/HCPCS: 99204

== ENCOUNTER → 2025-04-20 13:35 | Outpatient (BNVA) | payer OTHER, SELFPAY | PROVIDERS: PCP Physician Assistant Medical; Visit Provider Internal Medicine | DX: R10.10 Upper abdominal pain, unspecified (principal); R93.2 Abnormal findings on diagnostic imaging of liver and biliary tract; K21.9 Gastro-esophageal reflux disease without esophagitis | CPT/HCPCS: 99202 ==

== ENCOUNTER 2025-06-13 15:55 | Outpatient (AMB) | payer OTHER, SELFPAY ==
--- NOTE | 2025-06-13 16:00 | MHC.PC.OV ---
Vital Signs 06/13/25 16:07 Height 5 ft Weight 162 lb BMI 31.6 BP 98/62 Blood Pressure Location Rt brachial Position Sitting Respiration 16 Pulse 73 Pulse Source Pulse Oximeter Temp 97.8 F Temp Source Temporal Artery Scan Pulse Oximetry (%) 96 Oxygen Delivery Method Room Air Intake Visit Reasons: follow up Intake Note: Shanelle presents in the office today to follow up to Liver US. Patient has not heard from Neurology. Patient went to [facility] in [place]. Patient had X-ray - this was related to her Asthma. Allergies dust Allergy (Unknown, Uncoded 06/13/25 16:04) Itchy Eyes pollen Allergy (Unknown, Uncoded 06/13/25 16:04) Watery Eye lactose Adverse Reaction (Intermediate, Uncoded 06/13/25 16:04) Abdominal Pain Medication List - Last Reconciled 06/13/25 by BOBBY Guzman albuterol sulfate 2.5 mg (3 mL) inhalation Q4H PRN albuterol sulfate 90 mcg/actuation (Ventolin HFA) 2 puffs inhalation Q4H PRN cyanocobalamin (vitamin B-12) 500 mcg PO .every other day 90 days doxycycline hyclate 100 mg PO BID epinephrine IM famotidine 20 mg PO DAILY 90 days ferrous sulfate ER (Slow Release Iron) 140 mg PO .every 3 days 90 days fexofenadine (Judy Allergy) 180 mg PO DAILY fluticasone propion-salmeterol 115-21 mcg/actuation (Advair HFA) 2 puffs inhalation BID ondansetron 4 mg PO DAILY PRN 30 days rimegepant (Nurtec ODT) 75 mg PO Q OTHER DAY tretinoin 0.01% 1 appl topical BEDTIME Tobacco use date assessed: 06/13/25 Dental Screening Dental Screen Date: 06/13/25 Did you have a dental visit in the last 12 months?: Yes Did you have a dental problem in the last 6 months where you did not have access to dental care?: No Was dental information given to patient?: Patient has dentist HPI HPI Comments History of Present Illness Details This is a 24-year-old female with a past medical history of asthma, abnormal liver ultrasound, mild anemia, upper abdominal pain, allergic rhinitis, lactose intolerance and migraines presenting for follow up. She was seen at [facility] and [facility] 2 days ago. She has been feeling short of breath for the last 3-4 days. Patient says it is a little worse with exertion. She has felt irritation in her lungs and describes a mild chest discomfort in the middle of her chest. Treated with nebulizer there. She says it decrease symptoms but did not fully alleviate them. Patient says there was no other testing done other than x-ray. Patient says the provider said it looked like there could be pneumonia on the x-ray, but the radiologist said it was not pneumonia but they did see something on it and recommended taking antibiotics so they prescribed doxycycline. She has not started it yet. Denies cough, wheezing, hemoptysis or sputum production. No fevers or chills. Denies history of blood clots. She is not on exogenous estrogen. No recent travel. Denies leg swelling or lower extremity pain. She does not have a rescue inhaler. She is taking Judy and Advair. She receives allergy shots. She saw Gastroenterology, and she has started famotidine, and she will have a barium swallow study. She saw vascular surgery. Trial of compression symptoms recommended for varicose veins and a follow up in a few months. ROS: Constitutional: No unexplained weight loss, fever, chills, fatigue or night sweats. ENT: No hearing loss, sneezing, congestion, runny nose or sore throat. Respiratory: Denies cough, wheezing, sputum production and hemoptysis. See HPI. Cardiovascular: No palpitations, dizziness, syncope. See HPI. Gastrointestinal: See HPI Hematologic/Lymphatics: No bleeding or bruising. No painful lymph nodes. Psychiatric: No depression or anxiety. No SI/HI. Physical exam: Constitutional: Alert, in no distress. Head: Normocephalic. Ears: Canals clear. TMs higgins and pearly. Nose: No discharge, edema or erythema. Sinuses nontender. Mouth/throat: No erythema, edema, exudates. Neck: Supple, Full range of motion. No lymphadenopathy. No palpable masses. Respiratory: Clear to auscultation. No crackles or rales. Breath sounds are symmetric. Patient is not dyspneic. Cardiovascular: S1 S2 regular. No murmurs. Gastrointestinal: Abdomen soft, non-tender, non-distended. Normal bowel sounds. No palpable masses. No rebound or guarding. Extremities: Warm and well perfused. No clubbing, cyanosis or edema. There are varicose extremities noted in the back of the knees and calves. There is no lower extremity edema. There is no calf pain, redness or tenderness. [facility] Medical History (Updated 06/13/25 @ 16:22 by BOBBY Guzman) SOB (shortness of breath) Piezogenic pedal papule Tonsillolith Varicose vein of leg Asthma Other seasonal allergic rhinitis Cerebral aneurysm Tension headache Impacted cerumen of both ears Weight gain Routine physical examination Uncontrolled asthma Abnormal liver ultrasound Mild anemia Nausea Upper abdominal pain Fatigue Perennial allergic rhinitis with seasonal variation Mild intermittent asthma in adult without complication Lactose intolerance Migraines Acne vulgaris Bartholin's gland cyst Cyst of left Bartholin's gland Surgical History [place] teeth removed Family History Mother Asthma Migraine headache Brain aneurysm Brother Heart failure Sister Migraine headache Paternal Grandmother Liver cancer Social History (Updated 06/13/25 @ 16:06 by Susana Davis CMA) Household Members: Family Both parents involved: Yes Housing: House Alcohol intake: current Alcohol intake frequency: holidays/special occasions only Comment: Minimmally Patient Tobacco Use Status: Never used Tobacco e-Cigarette/Vaping Use: Never Used Second Hand Smoke Exposure: No Use of substances other than those prescribed or required for medical reasons: No service: No Current occupational status: employed and student 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 Mando Umana, Meghana Martin, Matt Ramos and colleagues, with an educational larissa from [employer]. ACT Questionnaire In the past 4 weeks, how much of the time did your asthma keep you from getting as much done at work, school or at home?: Some of the time During the past 4 weeks, how often have you had shortness of breath?: 1-2 times a week During the past 4 weeks, how often did your asthma symptoms wake you up at night or earlier than usual in the morning?: Not at all During the past 4 weeks, how often have you had to use your rescue inhaler or nebulizer medication?: 1-2 times a week How would you rate your asthma control during the past 4 weeks?: Somewhat controlled Score: 17 Physical exam (Primary Care) Vital Signs: Last Vital Signs Temp 97.8 F 06/13/25 16:07 Pulse 73 06/13/25 16:07 Resp 16 06/13/25 16:07 BP 98/62 06/13/25 16:07 Pulse Ox 96 06/13/25 16:07 Oxygen Delivery Method Room Air 06/13/25 16:07 BMI result Body Mass Index 31.6 Tobacco/Smoking Status: Tobacco use Status Tobacco use date assessed 06/13/25 06/13/25 16:11 Patient Tobacco Use Status Never used Tobacco 06/13/25 16:06 e-Cigarette/Vaping Use Never Used 06/13/25 16:06 Thrive Assessment: Date of Thrive Assessment Date Thrive assessed 12/02/24 06/13/25 16:00 Office Procedures EKG Details: Normal sinus rhythm with sinus arrhythmia, 70 beats per minute 43992-Cgyghwqbjlstqgbdk, Complete Coding Level of Care Code Est Pt Level 4 (59084) Complex EM visit Add On G2211 Diagnoses SOB (shortness of breath) R06.02 Perennial allergic rhinitis with seasonal variation J30.89; J30.2 Upper abdominal pain R10.10 Varicose veins of both lower extremities with pain I83.813 Laterality: bilateral Varicose vein complication: pain CPT Codes EKG - CPT: 69448-Ekzvvotemxhgaqiyy, Complete ([id number]) Assessment & Plan Assessment & Plan (1) SOB (shortness of breath): Code(s): R06.02 - Shortness of breath Category: Medical Plan: Records requested from urgent care. I will not be able to get them by end of day today therefore I did recommend she start the doxycycline since she was told the x-ray was abnormal and this was prescribed. She agreed. Take with food and a large glass of water. Recommended going to the ED if symptoms worsen. EKG nonischemic today. 0 Wells Criteria, and she does have known asthma, but given lack of cough, wheezing or typical URI symptoms we will get a D-dimer. If this is positive she will need a CTA to rule out PE. Check CBC and CMP. Continue antihistamine, maintenance inhaler and I prescribed a new albuterol inhaler for the patient to use every 4 hours as needed. COVID/flu/RSV swab sent. (2) Perennial allergic rhinitis with seasonal variation: Code(s): J30.89 - Other allergic rhinitis; J30.2 - Other seasonal allergic rhinitis Category: Medical Plan: Interval improvement with allergy injections. (3) Upper abdominal pain: Code(s): R10.10 - Upper abdominal pain, unspecified Category: Medical Plan: She is proceeding with barium swallow study, and she started famotidine. (4) Varicose vein of leg: Code(s): I83.90 - Asymptomatic varicose veins of unspecified lower extremity Category: Medical Qualifiers: Laterality: bilateral Varicose vein complication: pain Qualified Code(s): I83.813 - Varicose veins of bilateral lower extremities with pain Plan: Continue plan per vascular surgery. Plan Follow up to be determined based on results. Orders: Orders Complete Blood Count Auto Diff Today R06.02 - Shortness of breath D Dimer High Sensitivity Today R06.02 - Shortness of breath AMB EKG-In Office Today R06.02 - Shortness of breath Comprehensive Met. Panel Today R06.02 - Shortness of breath SARS-CoV2/FLU/RSV Today R09.89 - Other specified symptoms and signs involving the circulatory and respiratory systems Medications: New albuterol sulfate 90 mcg/actuation (Ventolin HFA) 2 puffs inhalation Q4H PRN 8.5 grams 2RF cough, wheezing or shortness of breath
[2025-06-13 16:07] VITALS: BP 98/62; PULSE 73; RESP 16; TEMP 36.6; O2SAT 96; BMI 31.6
--- OUTSIDE RECORDS SUMMARY | 2025-06-13 17:52 | XMS_ITS | Continuity of Care Document ---
Author Organization [place] - [facility], [facility] Address [address] [place] [address] Care Team Providers Care International Operations Manager Name Role Phone BOBOPRO HARTMAN Primary Care Provider Assessment Encounter Date Assessment Date Assessment LastModified by Organization Details LastModified Time 05/24/2025 05/24/2025 The patient has tonsil stones/Amygdaloli ths refractory to medical management. We discussed options, including continued medical management vs adenotonsillectom y. After a detailed discussion of the risks, benefits, and alternatives to tonsillectomy, the patient and family have agreed to proceed. We discussed R/B/A, including postoperative hemorrhage (1-3% of cases) with potential return to OR/ER and hospital stay, dehydration, halitosis, throat pain, voice change, tonsil regrowth, swallowing dysfunction, Lucy's syndrome, and velopharyngeal insufficiency Post-operatively, I explained that hydration and pain control are the mainstays of recovery. After the surgery, the patient should expect temporary halitosis, otalgia, neck soreness, and the worst sore throat of their life. It will typically last up to 2 weeks. Pain control with alternating doses of Tylenol (acetaminophen) and Motrin (ibuprofen) around the clock every 3 hours, although NSAIDS increase the bleeding risk in adults by 1%. We can also use oral steroids or narcotic pain medication for further pain control if needed. Usually, 1 week out of school or work is needed to recover, and then they may return with light activities for an additional week before resuming their regular routine. [email or web address] Not available 05/24/2025 12:22:46 Plan of Treatment Reminders Order Date Submit Date Provider Last Modified By Organization Details Last Modified Time Details Appointments None recorded. Lab None recorded. Referral None recorded. Procedures None recorded. Surgeries tonsillect obi & adenoidect obi (SURG) 2024 025 [email or web address] Not available 12:46:46 Imaging None recorded. Medication Orders None recorded. Patient TargetsNo targets recorded. Patient Instructions Encounter Date Encounter Id Patient Instructions Last Modified By Organization Details Last Modified Time 05/24/2025 [id number] tonsillectomy: before your surgery [email or web address] Not available 05/24/2025 12:22:48 Reason for Referral None Reported. Problems Name Problem SNOMED Code Status Onset Date Resolution Date Notes Provider Name and Address Organization Details Recorded Time Chronic pharyngitis 302540 Active 2024 Primitivo Glez, [address] [facility],[place] [address], [place], [address] , [facility] - [facility] 5 07:32:02 Hypertrophy of tonsils AND adenoids 65268426 Active 2024 Not Available [facility] 08:13:28 Problem Notes None recorded. Medical Equipment None Reported. Allergies No known drug allergies Medications Name Sig Start Date Stop Date Status Note LastModified by Organization Details LastModified Time ipratropium 0.5 mg-albutero l 3 mg (2.5 mg base)/3 mL nebulizatio n soln INHALE THE CONTENTS OF 1 VIAL VIA NEBULIZER 4 TIMES PER DAY ( NEEDED - WHEEZING) FOR 30 DAYS active Not Available Not Available No t Available cetirizine 10 mg tablet TAKE 1 TABLET BY MOUTH EVERY DAY 05/24 completed Not Available Not Available Not Available benzonatate 200 mg capsule TAKE 1 CAPSULE BY MOUTH THREE TIMES A DAY FOR 5 DAYS 05/24 completed Not Available Not Available Not Available prednisone 20 mg tablet 05/24 completed Not Available Not Available Not Available fexofenadin e 180 mg tablet TAKE 1 TABLET BY MOUTH EVERY DAY active Not Available Not Available No t Available famotidine 20 mg tablet TAKE 1 TABLET BY MOUTH DAILY FOR 90 DAYS active Not Available Not Available No t Available cyanocobala min (vit B-12) 500 mcg tablet TAKE 1 TABLET BY MOUTH EVERY OTHER DAY FOR 90 DAYS active Not Available Not Available No t Available benzonatate 100 mg capsule TAKE 2 CAPSULES BY MOUTH 3 TIMES A DAY FOR COUGH 05/24 completed Not Available Not Available Not Available Ear Drops (carbamide peroxide) 6.5 % USE 5 DRP INTO THE EAR(S) DAILY FOR 4 DAYS active Not Available Not Available No t Available epinephrine 0.3 mg/0.3 mL injection, auto-inject or USE DIRECTED FOR ANAPHYLAX IS THEN CALL 911 active Not Available Not Available No t Available Retin-A 0.01 % topical gel USE 1 APPLICATI ON TOPICALLY AT BEDTIME TO ACNE LESIONS ONCE DAILY BEFORE BEDTIME OR IN THE EVENING active Not Available Not Available No t Available ondansetron 4 mg disintegrat ing tablet TAKE 1 TABLET BY MOUTH EVERY DAY NEEDED FOR NAUSEA AND VOMITING. 10 TABS TO LAST 30 DAYS active Not Available Not Available No t Available fluticasone propionate 50 mcg/actuati on nasal spray,suspe nsion SPRAY 2 SPRAYS INTRANASA LLY DAILY active Not Available Not Available No t Available ipratropium bromide 21 mcg (0.03 %) nasal spray TAKE 2 SPRAYS (INTRANAS AL) 2 TIMES PER DAY ADMINISTE R INTO EACH NOSTRIL active Not Available Not Available No t Available naproxen 500 mg tablet TAKE 1 TABLET BY MOUTH EVERY 12 HOURS WITH FOOD OR MILK NEEDED FOR 30 DAYS 05/24 completed Not Available Not Available Not Available Advair HFA 115 mcg-21 mcg/actuati on aerosol inhaler TAKE 2 PUFFS BY MOUTH TWICE A DAY active Not Available Not Available No t Available Symbicort 80 mcg-4.5 mcg/actuati on HFA aerosol inhaler TAKE 2 PUFFS (INHALATI ON) 2 TIMES PER DAY FOR 30 DAYS active Not Available Not Available No t Available [facility] spacer TAKE 1 EACH (MISCELLA NEOUS) FOR 30 DAYS active Not Available Not Available No t Available [facility] ODT 75 mg disintegrat ing tablet 1 TABLET ON THE TONGUE AND ALLOW TO DISSOLVE ORALLY EVERY OTHER DAY 30 DAYS active Not Available Not Available No t Available Vitals Date Recorded Body height Body mass index (BMI) Body weight Provider Name and Address Organization Details Last Updated DateTime 05/24/2025 152.4 cm 31.6 kg/m2 35536.96 g ABBY TEMPLE [place] - [facility] 05/24/2025 11:46:57 Social History None recorded. Functional Status Question Answer Note LastModified by Organization D etails LastModified Time What is your level of alcohol consumption? None [email or web address] Information not available 05/24/2025 Mental Status None recorded. Family History Nothing Reported. Medical History Condition Response Migraines Y Anemia Y Asthma Y Headaches Y Gynecological HistoryNo gynecological history recorded. Obstetrics History GPAL:G 0 P 0 0 0 0 Past Encounters Encounter ID Performer Location Encounter Start Date Encounter Closed Date Diagnosis/Indication Diagnosis SNOMED-CT Code Diagnosis ICD10 Code Diagnosis IMO Codes Diagnosis Note [id number] Primitivo Glez DO [facility] [address] [place] [address] 05/24/2025 11:33:30 05/24/2025 12:08:55 Chronic pharyngitis 453276 J31.2 2578 Hypertroph y of tonsils AND adenoids 32298355 J35.3 641738 Health Concerns Section Related Observation LastModified by Organization Detai ls LastModified Time None Recorded Concern Status LastModified by Organization Details LastModified Time None Recorded Payers Encounter Date Sequence Insurance Name Policy Number Policy Petty Covered Member ID Petty Member ID Guarantor Name 05/24/2025 1 [facility] - HEALTH NET PLAN (MEDICAID HMO) NISHANT Timmons Fabricio Gaytan [id number] Shanelle Gaytan Notes Date Note Type Note Provider Name and Address Organization Details Recorded Time 05/24/2025 text/html ROS as noted in the HPI Pt presents today for Tonsil concerns. Patient endorses a long history of recurring tonsil stones and prior strep infections. Endorses Recurrent Strep infectionsDenies prior peritonsillar abscessesEndorses Prior treatment with antibiotics/steroids:Mita valenzuela endorse history of tonsil stones and halitosis, That is bothersome to her. She has tried using tweezers to remove the stones but they continue to bother her.Endorses dysphagia and dysphonia, especially when her allergies kick up. Record/Referral Review: N/a Primitivo Glez DO [address] [place] [address], [phone], [place] - [facility] 05/24/2025 12:23:06 OBGyn Episode No OBEpisode recorded.
--- OUTSIDE RECORDS SUMMARY | 2025-06-13 17:52 | XMS_ITS | Data Portability ---
Author Organization [place] - [facility], Allergy Address [address] [address] Care Team Providers Care Plant And Machinery Valuer Name Role Phone BOBO PRO Primary Care Provider [phone] Assessment Encounter Date Assessment Date Assessment LastModified [...] obi & adenoidect obi (SURG) 2024 025 [email or web address] Not available 12:46:46 Imaging None recorded. Medication Orders None recorded. Patient TargetsNo targets recorded. Patient Instructions Encounter Date Encounter Id Patient Instructions Last Modified By Organization Details Last Modified Time 05/24/2025 [id number] tonsillectomy: before your surgery [email or web address] Not available 05/24/2025 12:22:48 Reason for Referral None Reported. Problems Name Problem SNOMED Code Status Onset Date Resolution Date Notes Provider Name and Address Organization Details Recorded Time Chronic pharyngitis 761787 Active 2024 Primitivo Glez, [address],[place] [address], [place], [address] , [facility] - [facility] 5 07:32:02 Hypertrophy of tonsils AND adenoids 10571846 Active 2024 Not Available [facility] 08:13:28 Problem Notes None recorded. Medical Equipment [...] Not Available Not Available No t Available [facility] spacer TAKE 1 EACH (MISCELLA NEOUS) FOR 30 DAYS active Not Available Not Available No t Available [facility] ODT 75 mg disintegrat ing tablet 1 TABLET ON THE TONGUE AND ALLOW TO DISSOLVE ORALLY EVERY OTHER DAY 30 DAYS active Not Available Not Available No t Available Vitals Date Recorded Body height Body mass index (BMI) Body weight Provider Name and Address Organization Details Last Updated DateTime 05/24/2025 152.4 cm 31.6 kg/m2 90278.96 g ABBY TEMPLE [place] - [facility] 05/24/2025 11:46:57 Social History None recorded. Functional Status Question Answer Note LastModified by Organization D etails LastModified Time What is your level of alcohol consumption? None [email or web address] Information not available 05/24/2025 Mental Status None recorded. Family History Nothing Reported. Medical History Condition Response Anemia Y Migraines Y Headaches Y Asthma Y Gynecological HistoryNo gynecological history recorded. Obstetrics History GPAL:G 0 P 0 0 0 0 Past Encounters Encounter ID Performer Location Encounter Start Date Encounter Closed Date Diagnosis/Indication Diagnosis SNOMED-CT Code Diagnosis ICD10 Code Diagnosis IMO Codes Diagnosis Note [id number] Primitivo Glez DO [facility] [address] [place] [address] 05/24/2025 11:33:30 05/24/2025 12:08:55 Chronic pharyngitis 779865 J31.2 2578 Hypertroph y of tonsils AND adenoids 96038419 J35.3 398006 Health Concerns Section Related Observation LastModified by Organization Detai ls LastModified Time None Recorded Concern Status LastModified by Organization Details LastModified Time None Recorded Advance Directives Directive None Recorded Payers Insurance Date Sequence Insurance Name Policy Number Policy Petty Covered Member ID Petty Member ID Guarantor Name 05/30/2025 1 [facility] - HEALTH NET PLAN (MEDICAID HMO) NISHANT Regalado Gaytan [id number] Shanelle Gaytan Notes Date Note Type Note Provider Name and Address Organization Details Recorded Time 05/24/2025 text/html ROS as noted in the HPI Pt presents today for Tonsil concerns. Patient endorses a long history of recurring tonsil stones and prior strep infections. Endorses Recurrent Strep infectionsDenies prior peritonsillar abscessesEndorses Prior treatment with antibiotics/steroids:Mita valenuzela endorse history of tonsil stones and halitosis, That is bothersome to her. She has tried using tweezers to remove the stones but they continue to bother her.Endorses dysphagia and dysphonia, especially when her allergies kick up. Record/Referral Review: N/a Primitivo Glez DO [address] [place] [address], [phone], [place] - [facility] 05/24/2025 12:23:06 OBGyn Episode No OBEpisode recorded.
== END 2025-06-13 17:30 | disposition home or self-care (01) ==
PROVIDERS: PCP Physician Assistant Medical; Visit Provider Physician Assistant Medical
DX: R06.02 Shortness of breath (principal); J30.89 Other allergic rhinitis; J30.2 Other seasonal allergic rhinitis; R10.10 Upper abdominal pain, unspecified; I83.813 Varicose veins of bilateral lower extremities with pain

== ENCOUNTER 2025-06-13 15:55 | Outpatient (REF) | payer OTHER, SELFPAY ==
[2025-06-13 18:21] LABS: Resp Syncy Virus RNA Qual PCR NEGATIVE (Negative); SARS COV2 PCR INHOUSE NEGATIVE (Negative)
== END 2025-06-13 15:56 | disposition home or self-care (01) ==
LOC: HO.LAB 15:55
PROVIDERS: PCP Physician Assistant Medical; Visit Provider Physician Assistant Medical
DX: R09.89 Other specified symptoms and signs involving the circulatory and respiratory systems (principal); R06.02 Shortness of breath; J30.89 Other allergic rhinitis; J30.2 Other seasonal allergic rhinitis; R10.10 Upper abdominal pain, unspecified; I83.813 Varicose veins of bilateral lower extremities with pain; Z79.2 Long term (current) use of antibiotics; Z79.899 Other long term (current) drug therapy
CPT/HCPCS: 87637; 93005; 96160; 99212

== ENCOUNTER 2025-06-14 12:12 | Outpatient (REF) | payer OTHER, SELFPAY ==
[2025-06-14 14:01] LABS: MANUAL DIFF FLAG NO
[2025-06-14 14:12] LABS: Hematocrit 35.7 % (37.0-47.0); Hemoglobin 11.6 g/dl (12.0-16.0); Imm Gran Abs Auto 0.01 X10*3/uL (0.00-0.03); Imm Gran Pct Auto 0.2 % (0.0-0.4); Lymphocytes Absolute Auto 1.7 X10*3/uL (1.2-4.9); Mean Corpuscular HGB Conc 32.5 g/dl (31.0-35.0); Mean Corpuscular Hemoglobin 28.7 pg (27.0-33.0); Mean Corpuscular Volume 88.4 fL (80.0-98.0); NRBC Abs Auto 0.000 X10*3/uL (0.0-0.012); NRBC Pct Auto 0.0 /100WBC (0.0-0.2); Platelet Count 267 X10*3/uL (160-400); Red Blood Count 4.04 X10*6/uL (4.20-5.50); White Blood Count 4.8 X10*3/uL (4.8-10.8)
[2025-06-14 14:35] LABS: D Dimer High Sensitivity < 150 NG/ML
[2025-06-14 14:39] LABS: Alanine Aminotransferase 10 U/L (0-31); Albumin Level 4.4 g/dL (3.5-5.0); Alkaline Phosphatase 57 U/L (39-117); Anion Gap 11 (12-20); Aspartate Amino Transferase 19 U/L (5-31); Blood Urea Nitrogen 7 mg/dL (9-16); Calcium 9.4 mg/dL (8.4-10.2); Carbon Dioxide 26 mmol/L (22-29); Chloride 108 mmol/L (96-108); Estimated Glomerular Filt Rate > 60; Potassium 3.7 mmol/L (3.3-5.1); Sodium 141 mmol/L (135-145); Total Protein 7.1 g/dL (6.5-8.0)
== END 2025-06-14 12:13 | disposition home or self-care (01) ==
LOC: HO.WFDLDS 12:12
PROVIDERS: Visit Provider Physician Assistant Medical
DX: R06.02 Shortness of breath (principal)
CPT/HCPCS: 36415; 80053; 85025; 85379